=== PATIENT | female | born 1975 | race Two or more races ===

== ENCOUNTER 2019-02-16 12:46 | Emergency (ER) | payer MEDICAID ==
[~2019-02-16] VITALS: Ht 154.9 cm; Wt 105.0 kg
[~2019-02-16 12:46] MED LIST: AMLO10TA PO; CLIN-96 PO; CYCL10TA10 PO; HYDR-4383 PO; RANI-366 PO
[2019-02-16 13:00] VITALS: BP 232/110
[2019-02-16 13:25] LABS: BASOPHILS % (AUTO) 0.5 % (0-1); EOSINOPHILS # (AUTO) 0.1 X10'3 (0-0.9); EOSINOPHILS % (AUTO) 1.7 % (0-6); HEMATOCRIT 35.8 % (35.0-45.0); HEMOGLOBIN 11.2 g/dl (12.0-16.0); LYMPHOCYTES # (AUTO) 2.5 X10'3 (1.1-4.8); LYMPHOCYTES % (AUTO) 31.3 % (21-51); MEAN CORPUSCULAR HEMOGLOBIN 19.8 PG (27.0-31.0); MEAN CORPUSCULAR HGB CONC 31.3 g/dL (33.0-36.5); MEAN CORPUSCULAR VOLUME 63.3 FL (78-98); MONOCYTES # (AUTO) 0.5 X10'3 (0-0.9); MONOCYTES % (AUTO) 5.9 % (2-12); NEUTROPHILS # (AUTO) 4.8 X10'3 (1.8-7.7); NEUTROPHILS % (AUTO) 60.6 % (42-75); PLATELET COUNT 285 X10'3 (140-440); RED BLOOD COUNT 5.66 X10'6 (4.20-5.60); RED CELL DISTRIBUTION WIDTH 18.6 % (11.5-14.5); WHITE BLOOD COUNT 7.9 X10'3 (4.5-11.0)
[2019-02-16 13:37] LABS: ALANINE AMINOTRANSFERASE 19 U/L (12-78); ALBUMIN 3.3 G/DL (3.4-5.0); ALBUMIN/GLOBULIN RATIO 0.7 (1.1-1.5); ALKALINE PHOSPHATASE 63 IU/L (46-116); ANION GAP 6 (8-16); ASPARTATE AMINO TRANSFERASE 13 U/L (10-37); BILIRUBIN,TOTAL 0.3 MG/DL (0.1-1.0); BLOOD UREA NITROGEN 16 MG/DL (7-18); BUN/CREATININE RATIO 17.8 (6.6-38.0); CHLORIDE 104 MMOL/L (99-107); GLUCOSE 117 MG/DL (70-104); PARTIAL THROMBOPLASTIN TIME 28 SECONDS (22-32); POTASSIUM 3.6 MMOL/L (3.5-5.1); PROTHROMBIN TIME 10.4 SECONDS (9.0-12.0); SODIUM 138 MMOL/L (135-145); TOTAL CARBON DIOXIDE 27.9 MMOL/L (24-32); TOTAL PROTEIN 7.8 G/DL (6.4-8.2); eGFR 69 ML/MIN
[2019-02-16 15:13] LABS: ANISOCYTOSIS 2+; MICROCYTOSIS 2+; PLATELET ESTIMATE NORMAL; SCHISTOCYTES FEW
== END 2019-02-16 15:36 | disposition home or self-care (01) ==
LOC: ER 12:47
DX: B34.9 Viral infection, unspecified (principal); R07.9 Chest pain, unspecified; R10.13 Epigastric pain; I10 Essential (primary) hypertension; G89.29 Other chronic pain; I20.9 Angina pectoris, unspecified; Z98.51 Tubal ligation status; Z56.0 Unemployment, unspecified; Z88.5 Allergy status to narcotic agent; Z88.0 Allergy status to penicillin; Z79.899 Other long term (current) drug therapy
CPT/HCPCS: 36415; 71046; 80053; 84484; 85025; 85610; 85730; 99284

== ENCOUNTER 2021-04-22 13:39 | Inpatient (IN) | payer MEDICAID ==
[~2021-04-22] VITALS: Ht 154.9 cm; Wt 93.1 kg
[~2021-04-22 13:39] MED LIST changes: -CLIN-96 PO; +CLIN-97 PO
--- NOTE | 2021-04-22 15:04 | NUR ---
PATIENT REPORTS NUMBNESS TO LEFT FACE, LEFT ARM, LEFT SIDE AND LEG, INTERMITTENTLY FOR THE PAST 1-2 WEEKS. HX HTN.
[2021-04-22 15:26] LABS: BASOPHILS % (AUTO) 0.4 % (0-1); EOSINOPHILS # (AUTO) 0.2 X10'3 (0-0.9); EOSINOPHILS % (AUTO) 1.9 % (0-6); HEMATOCRIT 33.9 % (35.0-45.0); HEMOGLOBIN 10.6 g/dl (12.0-16.0); LYMPHOCYTES % (AUTO) 29.9 % (21-51); MEAN CORPUSCULAR HEMOGLOBIN 19.9 PG (27.0-31.0); MEAN CORPUSCULAR HGB CONC 31.4 g/dL (33.0-36.5); MEAN CORPUSCULAR VOLUME 63.5 FL (78-98); MEAN PLATELET VOLUME 8.6 FL (7.4-10.4); MONOCYTES # (AUTO) 0.7 X10'3 (0-0.9); MONOCYTES % (AUTO) 6.9 % (2-12); NEUTROPHILS # (AUTO) 6.1 X10'3 (1.8-7.7); NEUTROPHILS % (AUTO) 60.9 % (42-75); PLATELET COUNT 334 X10'3 (140-440); RED BLOOD COUNT 5.34 X10'6 (4.20-5.60); RED CELL DISTRIBUTION WIDTH 18.2 % (11.5-14.5)
[2021-04-22 15:40] LABS: ALANINE AMINOTRANSFERASE 20 U/L (12-78); ALBUMIN 3.3 G/DL (3.4-5.0); ALBUMIN/GLOBULIN RATIO 0.7 (1.1-1.5); ALKALINE PHOSPHATASE 60 IU/L (46-116); ANION GAP 10 (8-16); ASPARTATE AMINO TRANSFERASE 12 U/L (10-37); BILIRUBIN,TOTAL 0.4 MG/DL (0.1-1.0); BLOOD UREA NITROGEN 10 MG/DL (7-18); BUN/CREATININE RATIO 11.9 (6.6-38.0); CALCIUM 8.8 MG/DL (8.5-10.1); CHLORIDE 106 MMOL/L (99-107); CREATININE 0.84 MG/DL (0.40-0.90); GLUCOSE 80 MG/DL (70-104); POTASSIUM 3.4 MMOL/L (3.5-5.1); SODIUM 141 MMOL/L (135-145); TOTAL CARBON DIOXIDE 25.3 MMOL/L (24-32); TOTAL PROTEIN 8.2 G/DL (6.4-8.2); eGFR 74 ML/MIN
[2021-04-22 15:49] LABS: ANISOCYTOSIS 2+; ELLIPTOCYTES FEW; LARGE PLATELETS FEW; MICROCYTOSIS 2+; PLATELET ESTIMATE NORMAL
[2021-04-22 15:50] LABS: POLYCHROMASIA FEW
[2021-04-22 15:51] LABS: SCHISTOCYTES FEW
[2021-04-22 16:53] LABS: CLARITY,URINE SLIGHTLY CLOUDY (Clear); COLOR,URINE STRAW (Yellow); GLUCOSE, URINE NEGATIVE (Neg); KETONES,URINE NEGATIVE (Neg); LEUKOCYTE ESTERASE ,URINE NEGATIVE (Neg); NITRITES, URINE NEGATIVE (Neg); OCCULT BLOOD,URINE NEGATIVE (Neg); PROTEIN,URINE NEGATIVE (Neg)
[2021-04-22 16:58] LABS: UA COLLECTION TYPE CLN CATCH MIDSTREAM
[2021-04-22 17:05] LABS: URINE AMPHETAMINE SCREEN NEGATIVE (Neg); URINE BARBITUATE SCREEN NEGATIVE (Neg); URINE BENZODIAZEPINES SCREEN NEGATIVE (Neg); URINE CANNABINOID SCREEN NEGATIVE (Neg); URINE COCAINE SCREEN NEGATIVE (Neg); URINE METHADONE SCREEN NEGATIVE (Neg); URINE OPIATE SCREEN NEGATIVE (Neg); URINE PHENCYCLIDINE SCREEN NEGATIVE (Neg)
[2021-04-22] MEDS ORDERED: NIFE90TA61 PO (17:05)
[2021-04-22] MEDS ORDERED: SERT-433 PO (17:05)
[2021-04-22] MEDS ORDERED: LOSA100T57 PO (17:05)
[2021-04-22 17:07] LABS: MUCUS STRANDS MANY /LPF (Neg); SQUAMOUS EPITHELIAL CELL,UR MANY /LPF (FEW)
[2021-04-22 17:08] LABS: RBC,URINE NONE SEEN /HPF (0-2); WBC,URINE 0-4 /HPF (0-4)
[2021-04-22 17:09] LABS: BACTERIA,URINE 2+ /HPF (Neg)
[2021-04-22] MEDS ORDERED: metoprolol tartrate 1mg/ml inj IV ONE (17:25)
[2021-04-22] MEDS ORDERED: mag hydrox/Alum hydrox/simeth 30ml oral suspension PO PRN (17:35)
[2021-04-22] MEDS ORDERED: morphine 2 MG/ML inj. syringe IV PRN ×2 (17:35)
[2021-04-22] MEDS ORDERED: HYDROcodone/acetaminophen 5mg/325mg tablet PO PRN (17:35)
[2021-04-22] MEDS ORDERED: ondansetron/PF 4mg/2ml inj IV PRN (17:35)
[2021-04-22] MEDS ORDERED: magnesium hydroxide 30ml (MOM) UD suspension PO PRN (17:35)
[2021-04-22] MEDS ORDERED: acetaminophen 325mg tablet PO PRN ×2 (17:35)
[2021-04-22] MEDS ORDERED: HYDROcodone/acetaminophen 10/325mg tab PO PRN (17:35)
[2021-04-22] MEDS ORDERED: aspirin 81mg tab.chew PO ONE (17:40)
[2021-04-22] MEDS ORDERED: labetalol 20mg/4ml (5mg/ml) syringe IV PRN (17:55)
[2021-04-22 18:18] LABS: CHOL/HDL RATIO 6.3 (0.00-4.99); CHOLESTEROL 232 MG/DL (0-200); HDL CHOLESTEROL 37 MG/DL (35-60); LDL CHOLESTEROL 173 MG/DL (50-100); TRIGLYCERIDES 89 MG/DL (20-135)
[2021-04-22 18:43] LABS: FERRITIN 15 NG/ML (8-252)
--- NOTE | 2021-04-22 18:51 | NUR ---
Patient back from [facility] was not able to tolerate the test as it was overwhelming.
[2021-04-22 19:32] LABS: % IRON SATURATION 7 % (11-46); IRON 22 UG/DL (49-151); TOTAL IRON BINDING CAPACITY 319 UG/DL (259-388)
[2021-04-22] MEDS ORDERED: hydrALAZINE 20mg/ml inj. IV PRN (20:40)
[2021-04-22 21:30] VITALS: BP 118/77
[2021-04-22 22:30] VITALS: BP 114/57
[2021-04-22] MEDS ORDERED: normal saline 1000ml 1,000 ML IV ONE (23:10)
--- NOTE | 2021-04-22 23:30 | NUR ---
Called by Nicole special agent in charge regarding increase in pt symptoms. Pt reportedly attempted to get out of bed and fell at approx 2230 this evening. Pt was unable to move left arm or leg but remained alert, and oriented. Pt reported feeling "sweaty" prior to trying to get up. Pt's BP was 114-117 systolic at this time. Pt treated with hydralazine and metoprolol in the ED for hypertension. [address] upon my arrival pt was in CT. [address] Alert with left lower facial weakness and inability to move left arm or leg. Submitted request for tele neuro exam. 1 liter of NS infusing rapidly. 0010 tele neuro exam completed with Dr Sultana at which time pt was able to raise left arm off bed but not hold it up. Able to left left leg and hold for 5 seconds. BP 177-183 systolic. Orders for CTA head and neck. Pt unable to tolerate MRI prior to floor admission.
[2021-04-23] VITALS (7 sets, daily range): BP systolic 136–202; BP diastolic 57–99
[2021-04-23] MEDS ORDERED: iohexol 350MG/ML 100ml bottle IV ONE (01:06)
--- NOTE | 2021-04-23 01:22 | NUR ---
0 PATIENT ARRIVED TO FLOOR. ONLY COMPLAINT WAS NUMBNESS TO LEFT ARM AND LEFT SIDE FACIAL DROOP. (PLEASE SEE [facility]) OTHERWISE PATIENT WAS AT BASELINE. AMBULATED INDEPENDENT TO BATHROOM AND ATE A SANDWITCH WITHOUT DIFFICULTY. BP 118/77. 2230 NOTED PATIENT HAD FALLEN TO THE FLOOR. REPORTED SHE DID NOT HIT HER HEAD. STATED SHE WAS FEELING "SWEATY" AND WAS TRYING TO CALL FOR HELP AND DECIDED TO GET UP WHEN HER LEG GAVE OUT AND SHE FELL TO THE FLOOR. ASSISTED PATIENT TO CHAIR WHERE WE NOTED HER LEFT ARM AND LEFT LEG WERE BOTH FLACID. REPORTS TOTAL SENSATION LOSS ON LEFT SIDE. PATIENT INCONTINENT OF STOOL. BP 114/57. 5 ASSISTED BACK TO BED AND CALLED A STROKE ALERT AND CALLED DR. KRUEGER WHO ORDERED A 1L FLUID BOLUS AND A CT OF HEAD AND NECK WITHOUT CONTRAST. PT TAKEN TO CT. JUHI, STROKE NURSE, WAS AWAITING ON THE UNIT WHEN WE GOT BACK. AFTER APPROX 500ML'S OF FLUID INFUSED BP 183/64 AT 0000. TELE NEURO WAS DONE AND ORDERED A CTA OF HEAD. PT DOWN GETTING IMAGING DONE NOW. LAST BP 200/83. PT NOW ABLE TO LIFT LEG AND MOVE ARM AT THE SHOULDER. STATES NO SENSATION LOSS.
[2021-04-23 01:51] LABS: ALANINE AMINOTRANSFERASE 21 U/L (12-78); ALBUMIN 3.2 G/DL (3.4-5.0); ALBUMIN/GLOBULIN RATIO 0.7 (1.1-1.5); ALKALINE PHOSPHATASE 59 IU/L (46-116); ANION GAP 13 (8-16); ASPARTATE AMINO TRANSFERASE 12 U/L (10-37); BILIRUBIN,TOTAL 0.5 MG/DL (0.1-1.0); BLOOD UREA NITROGEN 11 MG/DL (7-18); BUN/CREATININE RATIO 11.1 (6.6-38.0); CALCIUM 8.4 MG/DL (8.5-10.1); CHLORIDE 106 MMOL/L (99-107); CHOL/HDL RATIO 6.6 (0.00-4.99); CHOLESTEROL 224 MG/DL (0-200); CREATININE 0.99 MG/DL (0.40-0.90); GLUCOSE 158 MG/DL (70-104); HDL CHOLESTEROL 34 MG/DL (35-60); LDL CHOLESTEROL 171 MG/DL (50-100); POTASSIUM 3.2 MMOL/L (3.5-5.1); SODIUM 141 MMOL/L (135-145); TOTAL CARBON DIOXIDE 21.8 MMOL/L (24-32); TOTAL PROTEIN 7.9 G/DL (6.4-8.2); TRIGLYCERIDES 79 MG/DL (20-135); eGFR 61 ML/MIN
[2021-04-23 02:00] LABS: BASOPHILS % (AUTO) 0.2 % (0-1); EOSINOPHILS # (AUTO) 0.2 X10'3 (0-0.9); EOSINOPHILS % (AUTO) 1.5 % (0-6); HEMOGLOBIN 10.3 g/dl (12.0-16.0); LYMPHOCYTES # (AUTO) 4.1 X10'3 (1.1-4.8); LYMPHOCYTES % (AUTO) 36.7 % (21-51); MEAN CORPUSCULAR HEMOGLOBIN 20.1 PG (27.0-31.0); MEAN CORPUSCULAR HGB CONC 31.4 g/dL (33.0-36.5); MEAN PLATELET VOLUME 10.2 FL (7.4-10.4); MONOCYTES # (AUTO) 0.7 X10'3 (0-0.9); MONOCYTES % (AUTO) 6.1 % (2-12); NEUTROPHILS # (AUTO) 6.3 X10'3 (1.8-7.7); NEUTROPHILS % (AUTO) 55.5 % (42-75); PLATELET COUNT 363 X10'3 (140-440); RED BLOOD COUNT 5.15 X10'6 (4.20-5.60); RED CELL DISTRIBUTION WIDTH 18.4 % (11.5-14.5); WHITE BLOOD COUNT 11.3 X10'3 (4.5-11.0)
[2021-04-23 04:41] LABS: ANISOCYTOSIS 2+; ELLIPTOCYTES FEW; MICROCYTOSIS 2+; PLATELET ESTIMATE NORMAL; SCHISTOCYTES FEW
--- NOTE | 2021-04-23 06:13 | NUR ---
Patient in room ORTHO 4021. I have received report from Tabby SKINNER and had the opportunity to ask questions and assume patient care.
--- NOTE | 2021-04-23 07:05 | NUR ---
PAGER ID: [phone] MESSAGE: [id number] Saba Aguilar is 3.2 can I get replacement protocol for her please? thanks alisha [phone]
[2021-04-23] MEDS: sertraline 50mg tablet PO SCH (07:35)
[2021-04-23] MEDS: aspirin 325mg tablet, delayed-release (Ecotrin) PO SCH (07:35)
[2021-04-23] MEDS: losartan 50mg tablet PO SCH (08:00)
[2021-04-23] MEDS ORDERED: NIFEdipine XL 30mg tablet PO SCH (08:00)
[2021-04-23] MEDS ORDERED: amLODIPine 5mg tablet PO SCH (08:00)
--- NOTE | 2021-04-23 08:18 | NUR ---
In to give AM medications, BP 187/66. Blood pressure medications held at this time to allow for permissive hypertension per [facility] neurology reccomendations.
--- NOTE | 2021-04-23 08:27 | NUR ---
technical project coordinator at bedside.
[2021-04-23 08:49] LABS: BASOPHILS % (AUTO) 0.3 % (0-1); EOSINOPHILS % (AUTO) 0.3 % (0-6); HEMATOCRIT 33.6 % (35.0-45.0); HEMOGLOBIN 10.6 g/dl (12.0-16.0); LYMPHOCYTES # (AUTO) 2.2 X10'3 (1.1-4.8); LYMPHOCYTES % (AUTO) 19.7 % (21-51); MEAN CORPUSCULAR HGB CONC 31.5 g/dL (33.0-36.5); MEAN CORPUSCULAR VOLUME 63.4 FL (78-98); MEAN PLATELET VOLUME 8.5 FL (7.4-10.4); MONOCYTES # (AUTO) 0.4 X10'3 (0-0.9); MONOCYTES % (AUTO) 3.8 % (2-12); NEUTROPHILS # (AUTO) 8.4 X10'3 (1.8-7.7); NEUTROPHILS % (AUTO) 75.9 % (42-75); PLATELET COUNT 359 X10'3 (140-440); RED CELL DISTRIBUTION WIDTH 18.4 % (11.5-14.5); WHITE BLOOD COUNT 11.1 X10'3 (4.5-11.0)
[2021-04-23 09:03] LABS: ALANINE AMINOTRANSFERASE 17 U/L (12-78); ALBUMIN 3.3 G/DL (3.4-5.0); ALBUMIN/GLOBULIN RATIO 0.7 (1.1-1.5); ALKALINE PHOSPHATASE 62 IU/L (46-116); ANION GAP 11 (8-16); ASPARTATE AMINO TRANSFERASE 10 U/L (10-37); BILIRUBIN,TOTAL 0.5 MG/DL (0.1-1.0); BLOOD UREA NITROGEN 12 MG/DL (7-18); BUN/CREATININE RATIO 12.8 (6.6-38.0); CHLORIDE 105 MMOL/L (99-107); CREATININE 0.94 MG/DL (0.40-0.90); GLUCOSE 161 MG/DL (70-104); POTASSIUM 3.4 MMOL/L (3.5-5.1); SODIUM 142 MMOL/L (135-145); TOTAL CARBON DIOXIDE 26.5 MMOL/L (24-32); TOTAL PROTEIN 8.2 G/DL (6.4-8.2); eGFR 65 ML/MIN
[2021-04-23 09:40] LABS: ANISOCYTOSIS 2+; ELLIPTOCYTES FEW; LARGE PLATELETS FEW; MICROCYTOSIS 2+; PLATELET ESTIMATE NORMAL; TEAR DROP CELLS FEW
[2021-04-23 09:41] LABS: HYPOCHROMASIA 2+
[2021-04-23] MEDS ORDERED: potassium Cl 20 mEq SR tablet PO PRN (10:20)
[2021-04-23] MEDS ORDERED: potassium Cl 40MEQ/1/2NS 520ml 520 ML IV PRN (10:20)
[2021-04-23] MEDS ORDERED: magnesium Cl slow-release 64mg tablet PO PRN (10:20)
[2021-04-23] MEDS ORDERED: magnesium 4gm in 100ml NS 100 ML IV PRN (10:20)
[2021-04-23] MEDS ORDERED: LORazepam 2 mg/ml vial IM ONE (10:20)
[2021-04-23] MEDS: atorvastatin 20mg tablet PO SCH (10:37)
[2021-04-23] MEDS: potassium Cl 20 mEq SR tablet PO PRN ×3 (10:37→17:42)
--- NOTE | 2021-04-23 12:00 | NUR ---
Patient to MRI
[2021-04-23] MEDS ORDERED: LORazepam 2 mg/ml vial IV STA (12:12)
--- NOTE | 2021-04-23 12:23 | NUR ---
Patient was not able to tolerate MRI. Ordered a follow up for tele neurology to review head and neck cta.
--- NOTE | 2021-04-23 12:41 | NUR ---
PAGER ID: [phone] MESSAGE: [phone] please call neurologist Dr. Davis [phone] [email or web address]
--- NOTE | 2021-04-23 17:58 | NUR ---
PAGER ID: [phone] MESSAGE: [id number] Jeff, Patient was unable to tolerate MRI even with Ativan. alisha [phone]
--- NOTE | 2021-04-23 18:14 | NUR ---
Problems reprioritized. Patient report given, questions answered & plan of care reviewed with Tabby SKINNER.
[2021-04-23] MEDS: K and/or MAG REPLACEMENT MC SCH (20:00)
[2021-04-24 02:00] VITALS: BP 188/78
--- NOTE | 2021-04-24 06:04 | NUR ---
Patient in room ORTHO 4021. I have received report from Tabby SKINNER and had the opportunity to ask questions and assume patient care.
[2021-04-24 06:05] VITALS: BP 204/76
[2021-04-24 06:15] LABS: BASOPHILS % (AUTO) 0.2 % (0-1); EOSINOPHILS # (AUTO) 0.2 X10'3 (0-0.9); EOSINOPHILS % (AUTO) 2.2 % (0-6); HEMATOCRIT 32.7 % (35.0-45.0); HEMOGLOBIN 10.2 g/dl (12.0-16.0); LYMPHOCYTES # (AUTO) 3.1 X10'3 (1.1-4.8); LYMPHOCYTES % (AUTO) 36.5 % (21-51); MEAN CORPUSCULAR HGB CONC 31.2 g/dL (33.0-36.5); MEAN CORPUSCULAR VOLUME 64.1 FL (78-98); MEAN PLATELET VOLUME 8.8 FL (7.4-10.4); MONOCYTES # (AUTO) 0.5 X10'3 (0-0.9); MONOCYTES % (AUTO) 6.3 % (2-12); NEUTROPHILS # (AUTO) 4.7 X10'3 (1.8-7.7); NEUTROPHILS % (AUTO) 54.8 % (42-75); PLATELET COUNT 333 X10'3 (140-440); RED BLOOD COUNT 5.11 X10'6 (4.20-5.60); RED CELL DISTRIBUTION WIDTH 18.5 % (11.5-14.5); WHITE BLOOD COUNT 8.5 X10'3 (4.5-11.0)
[2021-04-24 06:16] LABS: ANION GAP 10 (8-16); BLOOD UREA NITROGEN 19 MG/DL (7-18); BUN/CREATININE RATIO 22.6 (6.6-38.0); CHLORIDE 107 MMOL/L (99-107); CREATININE 0.84 MG/DL (0.40-0.90); GLUCOSE 96 MG/DL (70-104); POTASSIUM 4.1 MMOL/L (3.5-5.1); SODIUM 142 MMOL/L (135-145); TOTAL CARBON DIOXIDE 25.2 MMOL/L (24-32)
[2021-04-24 06:17] LABS: ALANINE AMINOTRANSFERASE 18 U/L (12-78); ALBUMIN/GLOBULIN RATIO 0.6 (1.1-1.5); ALKALINE PHOSPHATASE 52 IU/L (46-116); ASPARTATE AMINO TRANSFERASE 13 U/L (10-37); BILIRUBIN,TOTAL 0.3 MG/DL (0.1-1.0); CALCIUM 8.5 MG/DL (8.5-10.1); MAGNESIUM 1.9 MG/DL (1.5-2.4); TOTAL PROTEIN 7.7 G/DL (6.4-8.2); eGFR 74 ML/MIN
[2021-04-24 07:17] LABS: PLATELET ESTIMATE NORMAL
[2021-04-24 07:18] LABS: ANISOCYTOSIS 2+; MICROCYTOSIS 2+
[2021-04-24 07:19] LABS: ELLIPTOCYTES FEW; HYPOCHROMASIA 1+; SCHISTOCYTES FEW; TEAR DROP CELLS FEW
[2021-04-24] MEDS: sertraline 50mg tablet PO SCH (07:43)
[2021-04-24] MEDS: aspirin 325mg tablet, delayed-release (Ecotrin) PO SCH (07:43)
[2021-04-24] MEDS: atorvastatin 20mg tablet PO SCH (07:44)
[2021-04-24] MEDS: K and/or MAG REPLACEMENT MC SCH (08:00)
[2021-04-24] MEDS: losartan 50mg tablet PO SCH (08:54)
[2021-04-24] MEDS ORDERED: CLOP75TA15 PO (09:47)
[2021-04-24] MEDS ORDERED: ATOR20TA66 PO (09:47)
[2021-04-24] MEDS ORDERED: ASPI-1071 PO (09:47)
[2021-04-24 10:21] VITALS: BP 209/90
--- NOTE | 2021-04-24 10:24 | NUR ---
PAGER ID: [phone] MESSAGE: [id number], Jeff systolic bp still 209 after losartan, do you want me to order her home dose of amlodipine or nifedipime? alisha [email or web address] Addendum: 04/24/21 at 1044 by Alisha Zarate RN Received orders to administer both amlodipine and nifedipime to attempt to get systolic blood pressure below 200.
[2021-04-24] MEDS ORDERED: amLODIPine 5mg tablet PO SCH ×2 (10:45)
[2021-04-24] MEDS ORDERED: NIFEdipine XL 30mg tablet PO ONE (10:45)
[2021-04-24] MEDS ORDERED: FERR-119 PO (10:52)
[2021-04-24] MEDS ORDERED: NIFEdipine XL 30mg tablet PO SCH (10:55)
[2021-04-24 11:45] VITALS: BP 190/80
--- NOTE | 2021-04-24 12:37 | NUR ---
Patient discharged to home, stroke education given both to patient and mother. Removed 22 gauge PIV from right hand with no complications, 20 gauge to left forearm removed as well with no complications. Patient is instructed to follow up with Dr. Daniel, number provided and to take all medications as prescribed including plavix and aspirin. Verbalized understanding.
== END 2021-04-24 12:45 | disposition home health service (06) | DRG 45 ==
LOC: ER 13:41 → ED HOLD 17:34 → ORTHO 4S 21:30
PROVIDERS: ADMIT Internal Medicine; ATTEND Internal Medicine
PROC: BW281ZZ Computerized Tomography (CT Scan) of Head using Low Osmolar Contrast (ICD-10-PCS; principal; 2021-04-23)
DX: I63.511 Cerebral infarction due to unspecified occlusion or stenosis of right middle cerebral artery (principal); I67.7 Cerebral arteritis, not elsewhere classified; G81.94 Hemiplegia, unspecified affecting left nondominant side; D50.9 Iron deficiency anemia, unspecified; E11.9 Type 2 diabetes mellitus without complications; I10 Essential (primary) hypertension; Z79.02 Long term (current) use of antithrombotics/antiplatelets; Z79.899 Other long term (current) drug therapy; Z87.730 Personal history of (corrected) cleft lip and palate; Z98.891 History of uterine scar from previous surgery
CPT/HCPCS: 36415; 70450; 70496; 70498; 71045; 72125; 80053; 80061; 80305; 81001; 82728; 82948; 83540; 83550; 83735; 83880; 84443; 85008; 85025; 85610; 85651; 86885; 86900; 86901; 87081; 92508; 92616; 93005; 93306; 97110; 97112; 97161; 97530; 99291; 99292; G0378; J0360; J2060; J3490; J7030; Q9967

== ENCOUNTER 2023-09-14 11:40 | Inpatient (IN) | payer MEDICAID ==
[~2023-09-14] VITALS: Ht 157.5 cm; Wt 89.2 kg
[~2023-09-14 11:40] MED LIST changes: +ASPI-1071 PO; +ATOR20TA66 PO; -CLIN-97 PO; +CLOP75TA15 PO; -CYCL10TA10 PO; +FERR-119 PO; -HYDR-4383 PO; +LOSA100T58 PO; +NIFE90TA61 PO; -RANI-366 PO; +SERT-433 PO
[2023-09-14] MEDS ORDERED: niCARDipine-NS 40mg/200ml IVPB 200 ML IV SCH (11:55)
[2023-09-14] MEDS ORDERED: iohexol 350MG/ML 100ml bottle IV ONE (11:58)
[2023-09-14 12:16] LABS: BASOPHILS % (AUTO) 0.5 % (0-1); EOSINOPHILS # (AUTO) 0.1 X10'3 (0-0.9); EOSINOPHILS % (AUTO) 1.5 % (0-6); HEMATOCRIT 36.1 % (35.0-45.0); HEMOGLOBIN 11.3 g/dl (12.0-16.0); LYMPHOCYTES % (AUTO) 30.9 % (21-51); MEAN CORPUSCULAR HEMOGLOBIN 20.1 PG (27.0-31.0); MEAN CORPUSCULAR HGB CONC 31.4 g/dL (33.0-36.5); MEAN CORPUSCULAR VOLUME 64.2 FL (78-98); MONOCYTES # (AUTO) 0.6 X10'3 (0-0.9); MONOCYTES % (AUTO) 5.8 % (2-12); NEUTROPHILS # (AUTO) 5.9 X10'3 (1.8-7.7); NEUTROPHILS % (AUTO) 61.3 % (42-75); PLATELET COUNT 264 X10'3 (140-440); RED BLOOD COUNT 5.62 X10'6 (4.20-5.60); WHITE BLOOD COUNT 9.6 X10'3 (4.5-11.0)
[2023-09-14] MEDS ORDERED: labetalol 20mg/4ml (5mg/ml) syringe IV ONE ×2 (12:20→13:00)
--- NOTE | 2023-09-14 12:24 | NUR ---
Benigno joseph in EDM - 09/14/23 at 1225 by [email or web address] Gave pt labatolol per MD Olfs orders at bedside. HR 52
[2023-09-14 12:32] LABS: ALANINE AMINOTRANSFERASE 13 U/L (12-78); ALBUMIN 3.2 G/DL (3.4-5.0); ALBUMIN/GLOBULIN RATIO 0.7 (1.1-1.5); ALKALINE PHOSPHATASE 53 IU/L (46-116); ANION GAP 6 (8-16); APTT 26 SECONDS (22-32); ASPARTATE AMINO TRANSFERASE 18 U/L (10-37); BILIRUBIN,TOTAL 0.4 MG/DL (0.1-1.0); BLOOD UREA NITROGEN 12 MG/DL (7-18); CALCIUM 8.8 MG/DL (8.5-10.1); CHLORIDE 104 MMOL/L (99-107); CREATININE 0.86 MG/DL (0.40-0.90); GLUCOSE 94 MG/DL (70-104); POTASSIUM 3.8 MMOL/L (3.5-5.1); PROTHROMBIN TIME 10.8 SECONDS (9.0-12.0); SODIUM 136 MMOL/L (135-145); TOTAL CARBON DIOXIDE 25.6 MMOL/L (24-32); eCRCL 65 ML/MIN; eGFR 71 ML/MIN
--- NOTE | 2023-09-14 12:37 | NUR ---
Pt already assessed by neuro at bedside, plan to keep bp below 220 systolic. Pt will be level 2 stroke alert, LSN last night 2200. Woke up w/numbess to L side.
[2023-09-14 12:40] LABS: PRO BRAIN NATRIURETIC PEPTIDE 414 PG/ML (0-125)
[2023-09-14 12:44] LABS: ANISOCYTOSIS 2+; HYPOCHROMASIA 1+; MICROCYTOSIS 2+; PLATELET ESTIMATE NORMAL
[2023-09-14 12:45] LABS: ELLIPTOCYTES FEW
[2023-09-14] MEDS ORDERED: hydrALAZINE 25 MG tablet PO STA (13:00)
[2023-09-14] MEDS ORDERED: LORazepam 2 mg/ml vial IV ONE (13:55)
[2023-09-14] MEDS ORDERED: clopidogrel 75mg tablet PO STA (13:58)
[2023-09-14] MEDS ORDERED: aspirin 81mg tab.chew PO ONE (14:00)
[2023-09-14] MEDS ORDERED: labetalol 20mg/4ml (5mg/ml) syringe IV PRN (14:10)
[2023-09-14] MEDS ORDERED: magnesium hydroxide 30ml (MOM) UD suspension PO PRN (14:10)
[2023-09-14] MEDS ORDERED: mag hydrox/Alum hydrox/simeth 30ml oral suspension PO PRN (14:10)
[2023-09-14] MEDS ORDERED: morphine 2 MG/ML inj. syringe IV PRN ×2 (14:10)
[2023-09-14] MEDS ORDERED: ondansetron/PF 4mg/2ml inj IV PRN (14:10)
[2023-09-14] MEDS ORDERED: HYDROcodone/acetaminophen 5mg/325mg tablet PO PRN (14:10)
[2023-09-14] MEDS ORDERED: acetaminophen 325mg tablet PO PRN ×2 (14:10)
--- NOTE | 2023-09-14 16:30 | NUR ---
MD Kumar notified re pt's continued bp, he orders no corrections under 220 systolic.
[2023-09-14 16:35] LABS: HEMOGLOBIN A1C 5.7 % (4.5-6.2)
[2023-09-14] MEDS: docusate sod 100mg capsule PO SCH (19:53)
--- NOTE | 2023-09-14 20:46 | NUR ---
TRIED TO CALL REPORT PER STAFF NURSE FEBRUARY IS NOT AVAILABLE AT THIS TIME.
[2023-09-14 21:15] VITALS: BP 220/80; PULSE 53; RESP 16; TEMP 97.4; O2SAT 97
[2023-09-15 01:00] VITALS: BP 144/66; PULSE 67; RESP 19; TEMP 97.8; O2SAT 97
[2023-09-15 05:00] VITALS: BP 172/71; PULSE 65; RESP 12; TEMP 97.9; O2SAT 100
[2023-09-15 06:00] VITALS: BP 172/71; PULSE 65; RESP 12; TEMP 97.9; O2SAT 100
--- NOTE | 2023-09-15 06:26 | NUR ---
Patient in room ORTHO 4010. I have received report from BRODY Allred and had the opportunity to ask questions and assume patient care.
[2023-09-15 07:00] VITALS: RESP 14; O2SAT 97
[2023-09-15 07:29] LABS: BASOPHILS % (AUTO) 0.3 % (0-1); EOSINOPHILS # (AUTO) 0.1 X10'3 (0-0.9); EOSINOPHILS % (AUTO) 1.7 % (0-6); HEMATOCRIT 34.1 % (35.0-45.0); HEMOGLOBIN 10.8 g/dl (12.0-16.0); LYMPHOCYTES # (AUTO) 1.8 X10'3 (1.1-4.8); LYMPHOCYTES % (AUTO) 21.6 % (21-51); MEAN CORPUSCULAR HEMOGLOBIN 20.4 PG (27.0-31.0); MEAN CORPUSCULAR HGB CONC 31.8 g/dL (33.0-36.5); MEAN CORPUSCULAR VOLUME 64.3 FL (78-98); MONOCYTES # (AUTO) 0.6 X10'3 (0-0.9); NEUTROPHILS # (AUTO) 5.9 X10'3 (1.8-7.7); NEUTROPHILS % (AUTO) 69.4 % (42-75); PLATELET COUNT 251 X10'3 (140-440); RED CELL DISTRIBUTION WIDTH 19.3 % (11.5-14.5); WHITE BLOOD COUNT 8.5 X10'3 (4.5-11.0)
[2023-09-15 07:48] LABS: ALBUMIN 2.8 G/DL (3.4-5.0); ANION GAP 8 (8-16); BLOOD UREA NITROGEN 11 MG/DL (7-18); BUN/CREATININE RATIO 13.6 (10.0-20.0); CALCIUM 8.7 MG/DL (8.5-10.1); CHLORIDE 104 MMOL/L (99-107); CHOL/HDL RATIO 4.6 (0.00-4.99); CHOLESTEROL 189 MG/DL (0-200); CREATININE 0.81 MG/DL (0.40-0.90); GLUCOSE 92 MG/DL (70-104); HDL CHOLESTEROL 41 MG/DL (35-60); LDL CHOLESTEROL 129 MG/DL (50-100); POTASSIUM 3.5 MMOL/L (3.5-5.1); SODIUM 137 MMOL/L (135-145); TOTAL CARBON DIOXIDE 25.2 MMOL/L (24-32); TRIGLYCERIDES 71 MG/DL (20-135); eCRCL 69 ML/MIN; eGFR 76 ML/MIN
[2023-09-15] MEDS: docusate sod 100mg capsule PO SCH ×2 (07:53→20:00)
[2023-09-15] MEDS: enoxaparin 40mg/0.4ml syringe SUBCUT SCH (07:54)
[2023-09-15] MEDS: aspirin 81mg, enteric-coated 1 TAB TABLET.DR PO SCH (07:54)
[2023-09-15] MEDS: clopidogrel 75mg tablet PO SCH (07:55)
[2023-09-15] MEDS: atorvastatin 20mg tablet PO SCH (07:55)
[2023-09-15] MEDS: HYDROcodone/acetaminophen 10/325mg tab PO PRN ×2 (08:46→14:54)
--- NOTE | 2023-09-15 12:07 | NUR ---
: adriel- [id number] Pt rm 4010B- pt has BP 207/76, would you like me to order a BP medication ? She does not have any ordered. Thank you.
--- NOTE | 2023-09-15 12:08 | NUR ---
as clinical instructor i reviewed student nurse physical assessment
[2023-09-15] MEDS: hydrALAZINE 20mg/ml inj. IV PRN ×2 (14:53→22:17)
--- NOTE | 2023-09-15 15:43 | NUR ---
MESSAGE: adriel- [email or web address] Pt room 4010B- Karmen Agiular- pt has been seen by PT and has been cleared for discharge. Do you want patient to be discharged, she is still refusing MRI. Thank you.
[2023-09-15] MEDS ORDERED: ASPI-1071 PO (17:24)
[2023-09-15] MEDS ORDERED: ATOR40TA71 PO (17:24)
[2023-09-15 18:00] VITALS: BP 171/78; PULSE 63; RESP 16; TEMP 98; O2SAT 97
--- NOTE | 2023-09-15 18:00 | NUR ---
Patient in room ORTHO 4010. I have received report from BRODY Farrell and had the opportunity to ask questions and assume patient care.
--- NOTE | 2023-09-15 18:50 | NUR ---
Problems reprioritized. Patient report given, questions answered & plan of care reviewed with BRODY Becerril.
[2023-09-15 22:00] VITALS: BP 192/68; PULSE 62; RESP 23; TEMP 97.9; O2SAT 95
[2023-09-16 01:54] VITALS: BP 127/54; PULSE 98; RESP 15; TEMP 97.9; O2SAT 99
[2023-09-16 06:14] LABS: BASOPHILS % (AUTO) 0.1 % (0-1); EOSINOPHILS # (AUTO) 0.2 X10'3 (0-0.9); EOSINOPHILS % (AUTO) 1.3 % (0-6); HEMATOCRIT 35.2 % (35.0-45.0); HEMOGLOBIN 10.8 g/dl (12.0-16.0); LYMPHOCYTES # (AUTO) 2.5 X10'3 (1.1-4.8); LYMPHOCYTES % (AUTO) 22.4 % (21-51); MEAN CORPUSCULAR HEMOGLOBIN 19.7 PG (27.0-31.0); MEAN CORPUSCULAR HGB CONC 30.6 g/dL (33.0-36.5); MEAN CORPUSCULAR VOLUME 64.2 FL (78-98); MEAN PLATELET VOLUME 9.3 FL (7.4-10.4); MONOCYTES # (AUTO) 0.7 X10'3 (0-0.9); MONOCYTES % (AUTO) 5.9 % (2-12); NEUTROPHILS # (AUTO) 7.9 X10'3 (1.8-7.7); NEUTROPHILS % (AUTO) 70.3 % (42-75); PLATELET COUNT 300 X10'3 (140-440); RED BLOOD COUNT 5.49 X10'6 (4.20-5.60); RED CELL DISTRIBUTION WIDTH 19.4 % (11.5-14.5); WHITE BLOOD COUNT 11.2 X10'3 (4.5-11.0)
--- NOTE | 2023-09-16 06:15 | NUR ---
Problems reprioritized. Patient report given, questions answered & plan of care reviewed with BRODY Farrell.
[2023-09-16 06:26] LABS: ALBUMIN 2.8 G/DL (3.4-5.0); ANION GAP 8 (8-16); BLOOD UREA NITROGEN 16 MG/DL (7-18); BUN/CREATININE RATIO 18.6 (10.0-20.0); CALCIUM 9.2 MG/DL (8.5-10.1); CHLORIDE 103 MMOL/L (99-107); CREATININE 0.86 MG/DL (0.40-0.90); GLUCOSE 96 MG/DL (70-104); POTASSIUM 4.1 MMOL/L (3.5-5.1); SODIUM 136 MMOL/L (135-145); TOTAL CARBON DIOXIDE 24.6 MMOL/L (24-32); eCRCL 65 ML/MIN; eGFR 71 ML/MIN
--- NOTE | 2023-09-16 06:41 | NUR ---
Patient in room ORTHO 4010. I have received report from BRODY Becerril and had the opportunity to ask questions and assume patient care.
[2023-09-16] MEDS: atorvastatin 20mg tablet PO SCH (07:22)
[2023-09-16] MEDS: HYDROcodone/acetaminophen 10/325mg tab PO PRN ×2 (07:22→11:54)
[2023-09-16] MEDS: enoxaparin 40mg/0.4ml syringe SUBCUT SCH (07:23)
[2023-09-16] MEDS: aspirin 81mg, enteric-coated 1 TAB TABLET.DR PO SCH (07:24)
[2023-09-16] MEDS: clopidogrel 75mg tablet PO SCH (07:24)
[2023-09-16] MEDS: docusate sod 100mg capsule PO SCH (07:25)
[2023-09-16] MEDS ORDERED: CLOP75TA34 PO (08:16)
[2023-09-16 11:54] VITALS: RESP 15
--- NOTE | 2023-09-16 17:10 | NUR ---
pt was given discharge packet and was able to ask questions upon discharge. Pt was wheelchaired down to lobby with all of her belongings in no distress and stable. Pt left in private vehicle with friend.
== END 2023-09-16 12:55 | disposition home or self-care (01) | DRG 45 ==
LOC: ER 11:41 → ED HOLD 14:18 → ORTHO 4S 21:15
PROVIDERS: ADMIT Internal Medicine; ATTEND Internal Medicine
PROC: B3251ZZ Computerized Tomography (CT Scan) of Bilateral Common Carotid Arteries using Low Osmolar Contrast (ICD-10-PCS; principal; 2023-09-14)
PROC: B32G1ZZ Computerized Tomography (CT Scan) of Bilateral Vertebral Arteries using Low Osmolar Contrast (ICD-10-PCS; 2023-09-14)
PROC: B32R1ZZ Computerized Tomography (CT Scan) of Intracranial Arteries using Low Osmolar Contrast (ICD-10-PCS; 2023-09-14)
PROC: B3281ZZ Computerized Tomography (CT Scan) of Bilateral Internal Carotid Arteries using Low Osmolar Contrast (ICD-10-PCS; 2023-09-14)
DX: I63.9 Cerebral infarction, unspecified (principal); G81.94 Hemiplegia, unspecified affecting left nondominant side; E78.5 Hyperlipidemia, unspecified; G89.29 Other chronic pain; I10 Essential (primary) hypertension; I08.3 Combined rheumatic disorders of mitral, aortic and tricuspid valves; K21.9 Gastro-esophageal reflux disease without esophagitis; Z53.20 Procedure and treatment not carried out because of patient's decision for unspecified reasons; Z87.730 Personal history of (corrected) cleft lip and palate; Z98.891 History of uterine scar from previous surgery; Z88.0 Allergy status to penicillin; Z88.6 Allergy status to analgesic agent; Z79.899 Other long term (current) drug therapy; Z79.82 Long term (current) use of aspirin; Z82.49 Family history of ischemic heart disease and other diseases of the circulatory system; Z98.51 Tubal ligation status; Z56.0 Unemployment, unspecified
CPT/HCPCS: 36415; 70450; 70496; 70498; 71045; 80048; 80053; 80061; 82948; 83036; 83880; 84484; 85008; 85025; 85610; 85730; 87081; 93306; 97110; 97161; 97530; 99285; G0378; J0360; J1650; J2060; J2405; J3490; Q9967

== ENCOUNTER 2024-03-07 11:07 | Outpatient (CLI) | payer MEDICAID ==
[~2024-03-07 11:07] MED LIST changes: -ATOR20TA66 PO; +ATOR40TA71 PO; -CLOP75TA15 PO; +CLOP75TA34 PO; -FERR-119 PO; -NIFE90TA61 PO
== END 2024-03-07 23:59 | disposition home or self-care (01) ==
LOC: LAB 11:07
PROVIDERS: ATTEND Nurse Practitioner
DX: M25.511 Pain in right shoulder (principal)
CPT/HCPCS: 73030

== ENCOUNTER 2024-04-09 10:53 | Emergency (ER) | payer MEDICAID ==
[~2024-04-09] VITALS: Ht 154.9 cm; Wt 85.3 kg
[2024-04-09 10:56] VITALS: PULSE 59; RESP 16; TEMP 98.6; O2SAT 98
[2024-04-09 11:44] VITALS: BP 256/113
[2024-04-09] MEDS ORDERED: PRED20TA PO (11:57)
[2024-04-09] MEDS: dexamethasone sod phosphate 10mg/ml inj IM STA (11:57)
[2024-04-09] MEDS ORDERED: METH-798 PO (11:57)
== END 2024-04-09 12:31 | disposition home or self-care (01) ==
LOC: ER 10:54
DX: M25.511 Pain in right shoulder (principal); M25.512 Pain in left shoulder; Z88.0 Allergy status to penicillin; Z88.8 Allergy status to other drugs, medicaments and biological substances; I10 Essential (primary) hypertension; D64.9 Anemia, unspecified; G89.29 Other chronic pain; M54.9 Dorsalgia, unspecified; Z98.51 Tubal ligation status; Z56.0 Unemployment, unspecified; Z79.82 Long term (current) use of aspirin; Z79.899 Other long term (current) drug therapy
CPT/HCPCS: 73030; 96372; 99283; J1100; A4565

== ENCOUNTER 2025-04-05 18:30 | Emergency (ER) | payer MEDICAID ==
[~2025-04-05] VITALS: Ht 154.9 cm; Wt 72.8 kg
[~2025-04-05 18:30] MED LIST changes: +METH-798 PO
[2025-04-05 18:53] VITALS: BP 116/66; PULSE 68; O2SAT 100
--- NOTE | 2025-04-05 18:58 | Physician Documentation ---
History of Present Illness ~ Chief Complaint: Shoulder pain Stated Complaint: SHOLDER PAIN Time Seen by MD: 18:55 Primary Medical Doctor: [facility] HPI This is a 49-year-old female who presents with chronic right shoulder pain, patient reports that she has a orthopedist appointment on the 14 of April though pain is worse today is requesting some sort of pain management. Patient reports no other acute symptoms or concerns. Tetanus within 5 years?: Yes Medication Reconciliation Allergies: Coded Allergies: ibuprofen (Unverified Allergy, Mild, hives; rash, 04/05/25) States toradol with no issues Penicillins (Verified Allergy, Unknown, hives; rash, 04/05/25) >5 years ago, hives, no treatment required Scheduled Amlodipine Besylate (Amlodipine Besylate), 10 MG PO DAILY, (Reported) Aspirin (Ecotrin*), 1 TAB PO DAILY, (Reported) Atorvastatin Calcium (Atorvastatin Calcium), 1 TABLET PO DAILY, (Reported) Clopidogrel Bisulfate (Clopidogrel), 75 MG PO DAILY Losartan Potassium (Losartan Potassium), 1 TAB PO DAILY, (Reported) Methocarbamol (Methocarbamol), 1 TAB PO Q8H Sertraline HCl (Sertraline HCl), 1 TAB PO DAILY, (Reported) Past Medical History Past Medical History: Angina, Hypertension, Anemia, Chronic Back Pain Past Surgical History: , tubal ligation, other Other Past Family History: Mom CABG age 50, smoker Alcohol Use: None Drug Use: none Lives with: S/O Lives In: Home Occupation: unemployed Review of Systems ROS Chronic right shoulder pain as stated above in the HPI, otherwise all systems are reviewed and negative. Physical Exam Vital Signs: Temperature: 96.8, Source: Temporal, Heart Rate: 68, Respiratory Rate: 15, BP: 116/66, Pulse Oximetry: 100, Weight: 72.750 Physical Exam VITALS: Reviewed and as above. GENERAL: Alert, nontoxic appearing, no apparent distress. RESPIRATORY: No increased work of breathing, no respiratory distress, speaking in full clear sentences: MUSCULOSKELETAL: Tenderness palpation to posterior aspect of right shoulder, right shoulder ROM limited due to pain with patient unable to raise arm above shoulder, right hand and arm neurovascularly intact with brisk capillary refill, strong radial pulse, and sensation intact SKIN: No ecchymosis or erythema to right shoulder or arm Progress Results/Orders Results/Orders Orders - HARMEET HOLDEN Ortho Orders (04/05/25 ) Completed Orders - HARMEET HOLDEN Ketorolac Trometh 15mg/Ml Vial (Toradol (04/05/25 19:25) Medications Received in ER Medications (Trade) Dose Ordered Sig/Sharon Route PRN Reason Start Time Stop Time Status Last Admin Dose Admin (Toradol injection) 15 mg ONCE ONCE IM 04/05/25 19:25 04/05/25 19:28 DC 04/05/25 19:55 15 MG Vital Signs 04/05/25 04/05/25 04/05/25 18:53 19:50 19:55 Temp 96.8 96.8 Pulse 68 Resp 15 19 B/P (MAP) 116/66 Pulse Ox 100 Medical Decision Making Findings This is a 49-year-old female who presented with chronic right shoulder pain requesting pain medication for chronic shoulder pain, patient does have follow up in six days with orthopedist. It was reassuring the arm was neurovascularly intact and remainder of physical exam was benign. Patient's vital signs are stable, patient medicated for pain in department and discharged to follow up as previously scheduled with orthopedist. Patient provided sling for comfort. Differential Dx:Considerations: Include: AC separation, Adhesive capsulitis, Cervical disc disease, Contusion, Dislocation, Fracture: Humerus, Neurovascular Injury, Rotator cuff injury, Sprain Departure Disposition: 01 HOME / SELF CARE / HOMELESS Impression: Primary Impression: Shoulder pain Qualified Codes: M25.511 - Pain in right shoulder; G89.29 - Other chronic pain Condition: Improved Discharge Instructions: Shoulder Pain Additional Instructions: Follow up with your orthopedist as scheduled, you may use Tylenol as needed for pain as directed by [id number] packaging. Please also follow up with your primary care provider in the next few days. Please return to the emergency department for any new or worsening concerning symptoms. Referrals: NO PRIMARY CARE PROVIDER (PCP) Education Educated: Patient Educated regarding: diagnosis, treatment, prognosis, need for follow up Signature Scribe Signature: No scribe Attestation: The note accurately reflects work and decisions made by me.JONES Morales 04/06/25 02:59 HARMEET HOLDEN April 05, 2025 18:58
[2025-04-05 19:50] VITALS: TEMP 96.8
[2025-04-05 19:55] VITALS: RESP 19
[2025-04-05] MEDS: ketorolac trometh 15mg/ml vial 15 MG/ML ML IM ONE (19:55)
== END 2025-04-05 20:00 | disposition home or self-care (01) ==
LOC: ER 18:30
DX: M25.511 Pain in right shoulder (principal); I10 Essential (primary) hypertension; Z88.0 Allergy status to penicillin; Z88.6 Allergy status to analgesic agent; Z98.51 Tubal ligation status
CPT/HCPCS: 96372; 99283; J1885; A4565

== ENCOUNTER 2025-08-01 10:01 | Inpatient (IN) | payer MEDICAID ==
[~2025-08-01] VITALS: Ht 154.9 cm; Wt 79.0 kg
--- NOTE | 2025-08-01 10:12 | Physician Documentation ---
History of Present Illness ~ Chief Complaint: Stroke Alert Stated Complaint: NUMBNESS SINCE THURSDAY Time Seen by MD: 10:12 Primary Medical Doctor: BENJIE HPI Patient is a 49-year-old female that presents to the emergency department for numbness tingling weakness blurry vision in her left eye since Thursday. She reports she has a history of a stroke 5 years ago and has had multiple episodes alert to today's presentations multiple times since her stroke 5 years ago. She reports that she does have left-sided deficits at baseline upper extremity slight left facial droop numbness tingling at baseline in her upper left extremity left lower extremity is functional with no deficits. Reports headache x2 days. No known nausea vomiting diarrhea at this time. Reports that she has significant hypertension at baseline reports that her hypertension is regularly in the 250s on her systolic blood pressure. Does not worse she takes antihypertensives amlodipine nifedipine and losartan. Patient is currently a and O x4 GCS 15. Medication Reconciliation Allergies: Coded Allergies: ibuprofen (Unverified Allergy, Mild, hives; rash, 04/05/25) States toradol with no issues Penicillins (Verified Allergy, Unknown, hives; rash, 04/05/25) >5 years ago, hives, no treatment required Scheduled Amlodipine Besylate (Amlodipine Besylate), 10 MG PO DAILY, (Reported) Aspirin (Ecotrin*), 1 TAB PO DAILY, (Reported) Atorvastatin Calcium (Atorvastatin Calcium), 1 TABLET PO DAILY, (Reported) Clopidogrel Bisulfate (Plavix), 1 TAB PO DAILY Ferrous Sulfate (Ferrous Sulfate), 1 TAB PO BID, (Reported) Lisinopril (Lisinopril), 1 TAB PO BID Sertraline HCl (Sertraline HCl), 1 TAB PO DAILY, (Reported) Discontinued Medications Clopidogrel Bisulfate (Clopidogrel), 75 MG PO DAILY Discontinued Reason: completed med therapy Losartan Potassium (Losartan Potassium), 1 TAB PO DAILY, (Reported) Methocarbamol (Methocarbamol), 1 TAB PO Q8H Discontinued Reason: patient no longer taking Past Medical History Past Medical History: Angina, Hypertension, Anemia, Chronic Back Pain Past Surgical History: , tubal ligation, other Other Past Family History: Mom CABG age 50, smoker Alcohol Use: None Drug Use: none Lives with: S/O Lives In: Home Occupation: unemployed Review of Systems All Other Systems at this time: Reviewed and Negative Physical Exam Vital Signs: Temperature: 97.9, Source: Temporal, Heart Rate: 87, Respiratory Rate: 18, BP: 287/159, Pulse Oximetry: 100, Weight: 79.000 Oxygen Flow Rate: 0 General Appearance I have reviewed the triage vitals. CONST: Well developed and well nourished. In no acute distress HENT: Head Atraumatic EYES: Pupils are equal, round and reactive to light. Normal conjunctiva NECK: Normal range of motion. Supple. CARDIO: Normal rate and regular rhythm. No murmurs, rubs, or gallops. S1, S2. PULM/CHEST: No respiratory distress. Lungs clear to auscultation. No wheeze ABD: Soft and nontender. Nondistended. Bowel sounds normal. No guarding. : Exam deferred MSK: No edema. No deformity. NEURO: Alert and oriented to person, place and time. Moving all extremities. Left-sided facial arm and leg decreased sensation to light touch. Cranial nerves 2-12 appear normal. Patient reports blurry vision on the left but has normal visual del real. Strength is 3/5 on the left and 5/5 on the right. No pronator drift visualized bilaterally. No leg drift visualized bilaterally. SKIN: Warm and dry. PSYCH: Normal mood and affect. Good eye contact. Progress Results/Orders Results/Orders Orders - JOHN MILLAN MD Monitor (08/01/25 10:09) 2 Large Bore Ivs (08/01/25 10:09) Chest,Single View (08/01/25 10:09) Accucheck (08/01/25 10:09) Ct Stroke Alert (08/01/25 10:16) [place] Prov.Neuro Consult (08/01/25 10:09) Cta Neck/Head (08/01/25 12:51) Page Hospitalist (08/01/25 14:18) Fill Out Med Reconciliation (08/01/25 14:18) Completed Orders - JOHN MILLAN MD Cbc/Diff (08/01/25 10:09) Electrocardiogram (08/01/25 10:09) Chest,Single View (08/01/25 10:09) Ct Stroke Alert (08/01/25 10:16) BMP (08/01/25 10:09) PTT (08/01/25 10:09) Pt Inr (08/01/25 10:09) Hs Troponin I W Calculations (08/01/25 10:31) Hs Troponin I W Calculations (08/01/25 12:31) Cta Neck/Head (08/01/25 12:51) Hydralazine Inj. (Apresoline Inj.) (08/01/25 10:40) Iohexol 350mg/Ml 100ml (Omnipaque 350mg/ (08/01/25 11:15) Normal Saline 1000ml (0.9% Sodium Chlori (08/01/25 11:25) Diazepam Inj (Valium Inj) (08/01/25 12:30) Ondansetron Inj. (Zofran 4mg/2ml Vial) (08/01/25 12:30) Electrocardiogram (08/01/25 11:27) Hgb A1c (08/01/25 10:35) Lipid Panel (08/01/25 10:35) TSH (08/01/25 10:35) Vital Signs 08/01/25 08/01/25 08/01/25 08/01/25 10:04 10:29 10:40 10:44 Temp 97.9 97.9 Pulse 87 86 64 Resp 18 22 18 B/P (MAP) 287/159 278/125 231/94 (139) Pulse Ox 100 100 99 O2 Flow Rate 0 0 08/01/25 08/01/25 08/01/25 08/01/25 10:44 10:56 11:25 11:35 Pulse 63 61 57 63 Resp 18 13 25 B/P (MAP) 231/94 180/153 102/137 Pulse Ox 99 100 100 08/01/25 08/01/25 08/01/25 08/01/25 11:42 12:00 12:27 12:44 Pulse 95 91 89 Resp 17 26 28 18 B/P (MAP) 194/91 Pulse Ox 100 99 100 08/01/25 08/01/25 08/01/25 08/01/25 13:05 13:12 13:30 13:45 Pulse 87 83 70 82 Resp 20 15 17 19 B/P (MAP) 196/91 178/91 183/95 184/100 Pulse Ox 99 100 100 98 08/01/25 08/01/25 08/01/25/23/25 14:00 14:15 14:19 15:11 Temp 97.9 97.9 Pulse 80 69 92 68 Resp 18 13 21 20 B/P (MAP) 208/110 199/99 220/122 (154) 197/97 (130) Pulse Ox 99 99 100 100 O2 Flow Rate 0 0 08/01/25 08/01/25 16:29 17:35 Temp 97.9 97.9 Pulse 69 64 Resp 17 15 B/P (MAP) 254/107 (156) 180/82 (114) Pulse Ox 100 99 O2 Flow Rate 0 0 Laboratory Tests Test 08/01/25 10:06 08/01/25 10:35 08/01/25 13:00 08/01/25 18:14 Glucometer 102 White Blood Count 7.4 Red Blood Count 5.48 Hemoglobin 10.5 L Hematocrit 33.7 L Mean Corpuscular Volume 61.6 L Mean Corpuscular Hemoglobin 19.1 L Mean Corpuscular Hemoglobin Concent 31.0 L Red Cell Distribution Width 20.0 H Platelet Count 331 Mean Platelet Volume 8.6 Neutrophils (%) (Auto) 60.5 Lymphocytes (%) (Auto) 32.4 Monocytes (%) (Auto) 5.4 Eosinophils (%) (Auto) 1.1 Basophils (%) (Auto) 0.6 Neutrophils # (Auto) 4.5 Lymphocytes # (Auto) 2.4 Monocytes # (Auto) 0.4 Eosinophils # (Auto) 0.1 Basophils # (Auto) 0.0 CBC Comment Platelet Estimate Normal Red Blood Cell Morphology Perf Hypochromasia 1+ Basophilic Stippling Anisocytosis 2+ Microcytosis 2+ Elliptocytes 1+ Prothrombin Time 10.7 10.9 INR International Normalized Ratio 1.0 1.1 Activated Partial Thromboplast Time 27 Coagulation Comments Sodium Level 139 Potassium Level 3.6 Chloride Level 105 Carbon Dioxide Level 26.3 Anion Gap 8 Blood Urea Nitrogen 9 Creatinine 0.86 Estimated GFR/1.73 m2 70 BUN/Creatinine Ratio 10.5 Glucose Level 93 Hemoglobin A1c 5.6 Calcium Level 8.7 Troponin I High Sensitivity 11 13 Albumin 3.0 L Triglycerides Level 95 Cholesterol Level 237 H LDL Cholesterol 175 H HDL Cholesterol 46 Cholesterol/HDL Ratio 5.2 H Thyroid Stimulating Hormone (TSH) 0.75 Chemistry Comments Troponin I High Sens Percent Delta 18 Troponin I Hi Sens Absolute Change 2 EKG/XRAY/CT/US/VASC/MRI EKG : Additional Comment EKG as interpreted by ED MD indicating normal sinus rhythm at a rate of 73 beats per minute, no ischemia, normal axis Chest X-Ray : Additional Comments EXAM: DI CHEST,SINGLE VIEW Indication: Stroke Alert Technique: Single frontal view of the chest was obtained Comparison: DI CHEST,SINGLE VIEW on DOS: 09/14/23, CHEST,SINGLE VIEW on DOS: 04/22/21, CHEST,TWO VIEWS on DOS: 02/16/19 FINDINGS: Lines and Tubes: None Lungs: No focal consolidation. Pleura: No effusion. No pneumothorax. Cardiomediastinal contours: Unremarkable Bones: No acute osseous abnormality. IMPRESSION: No acute cardiopulmonary disease. : Impression XAM: CT CTA NECK/HEAD DATE OF SERVICE: 08/01/2025 12:44 PM ORDERING PHYSICIAN: JOHN MILLAN REASON FOR EXAM: left sided weakness TECHNIQUE: CTA of the brain and neck was performed after the administration of contrast . Axial images of the head and neck are obtained. Coronal and sagittal images were then reformatted for review. MIP reformats were obtained and reviewed. COMPARISON: CT head from today FINDINGS: FINDINGS: The right common carotid artery demonstrates no high-grade stenosis. Right internal carotid artery demonstrates no high-grade stenosis. Right middle cerebral artery demonstrates no high-grade stenosis. The right anterior cerebral artery demonstrates no high-grade stenosis. The left common carotid artery demonstrates mild soft plaque of the left carotid bulb. Less than 50% stenosis of the proximal left ICA. The left middle cerebral artery focal 50% stenosis of the distal M1 segment The left anterior cerebral artery demonstrates no high-grade stenosis. The right vertebral artery demonstrates no high-grade stenosis. The left vertebral artery demonstrates no high-grade stenosis. Basilar artery demonstrates no high-grade stenosis. The right posterior cerebral artery demonstrates multifocal moderate grade stenosis of the P1 and P2 segments, approximately 50-60% stenoses. Right frontoparietal encephalomalacia. Cavum septum pellucidum. Left maxillary sinus disease. IMPRESSION: No large vessel occlusion. Focal 50% stenosis of the left MCA distal M1 segment. Approximately 50-60% stenosis of the right posterior cerebral artery P1 and P2 segments ICAL INFORMATION: 49 years old, Female; Stroke Alert. TECHNIQUE: Axial imaging was obtained through the brain without contrast. Coronal and sagittal reformatted images were obtained, reviewed, and stored. Images were reviewed in brain and bone windows. All CT scans at this medical facility are performed using dose modulation techniques as appropriate to a performed exam including the following: Automated exposure control was utilized; adjustment of the MA and/or KV according to patient size; and use of iterative reconstruction technique. CTDIvol = 55.96 mGy DLP = 1053.21 mGy-cm COMPARISON: CT CT STROKE ALERT on DOS: 09/14/23, CT CTA NECK/HEAD on DOS: , CT HEAD on DOS: 04/22/21 FINDINGS: There is no acute intracranial hemorrhage. No mass effect or midline shift. Cavum septum pellucidum et vergae incidentally noted. Ventricles are stable in size. Basal cisterns are patent. Encephalomalacia in the right frontoparietal region appears unchanged compared to the prior exam. The calvarium is unremarkable. Paranasal sinuses and mastoid air cells are clear. IMPRESSION: 1. No CT evidence of acute intracranial abnormality. 2. Nonacute findings as described above. Critical findings Critical Result: Stroke Alert Findings discussed with Dr. Millan, at 08/01/2025 12:31 PM CDT, and acknowledged receipt and understanding of the findings. Medical Decision Making Additional Information 49-year-old female presenting with left-sided paresthesia and blurry vision. Her workup is negative for an acute infarct. This included a CT of the head noncontrast and a CTA. She does have some stenosis in her cerebral arteries which are chronic for her. Tele neurology assessed the patient. They recommended admission for monitoring and an MRI. Patient was also very hypertensive and received 20 mg of IV hydralazine. This improved her blood pressure with the patient also became nauseous and anxious and required antiemetics as well as IV diazepam. Patient admitted to the hospitalist service. Departure Disposition: ADMITTED INPATIENT Admission Level of Care: Neuro with Tele Impression: Primary Impression: Hypertensive urgency Additional Impressions: Paresthesia of left arm and leg Facial paresthesia Condition: Guarded Referrals: NO PRIMARY CARE PROVIDER (PCP) Prescriptions Lisinopril (Lisinopril) 20 Mg Tablet 1 TAB PO BID, #60 TAB Prov: KENDAL PECK MD 08/03/25 Clopidogrel Bisulfate (Plavix) 75 Mg Tablet 1 TAB PO DAILY for 30 Days, #30 TAB 0 Refills Prov: KENDAL PECK MD 08/03/25 Signature Scribe Signature: 1 Attestation: 1 PRINCE MENA Aug 01, 2025 10:12 JOHN MILLAN MD Aug 01, 2025 10:45
--- NOTE | 2025-08-01 10:34 | RADIOLOGY REPORT ---
CLINICAL INFORMATION: 49 years old, Female; Stroke Alert. TECHNIQUE: Axial imaging was obtained through the brain without contrast. Coronal and sagittal reformatted images were obtained, reviewed, and stored. Images were reviewed in brain and bone windows. All CT scans at this medical facility are performed using dose modulation techniques as appropriate to a performed exam including the following: Automated exposure control was utilized; adjustment of the MA and/or KV according to patient size; and use of iterative reconstruction technique. CTDIvol = 55.96 mGy DLP = 1053.21 mGy-cm COMPARISON: CT CT STROKE ALERT on DOS: 09/14/23, CT CTA NECK/HEAD on DOS: 09/14/23, CT HEAD on DOS: 04/22/21 FINDINGS: There is no acute intracranial hemorrhage. No mass effect or midline shift. Cavum septum pellucidum et vergae incidentally noted. Ventricles are stable in size. Basal cisterns are patent. Encephalomalacia in the right frontoparietal region appears unchanged compared to the prior exam. The c alvarium is unremarkable. Paranasal sinuses and mastoid air cells are clear. IMPRESSION: 1. No CT evidence of acute intracranial abnormality. 2. Nonacute findings as described above. Critical findings Critical Result: Stroke Alert Findings discussed with Dr. Radford, at 08/01/2025 12:31 PM CDT, and acknowledged receipt and understanding of the findings. ..
[2025-08-01 10:41] LABS: MEAN PLATELET VOLUME 8.6 FL (7.4-10.4); RED CELL DISTRIBUTION WIDTH 20.0 % (11.5-14.5)
--- NOTE | 2025-08-01 10:42 | ELECTROCARDIOGRAPH REPORT ---
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 Kirk Servin Measurements Intervals [place] Rate: 63 P: 40 [place]: 133 QRS: 16 QRSD: 80 T: 40 QT: 428 QTc: 439 Interpretive Statements Sinus rhythm Electronically Signed On 08-10-2025 21:52:[address] Kirk Servin Please click the below link to view image of tracing.
--- NOTE | 2025-08-01 10:48 | CONSULTATION REPORT ---
History of Present Illness Providers to CC ~ Refering MD: BENJIE Allergies: Coded Allergies: ibuprofen (Unverified Allergy, Mild, hives; rash, 04/05/25) States toradol with no issues Penicillins (Verified Allergy, Unknown, hives; rash, 04/05/25) >5 years ago, hives, no treatment required Home Medications Home Medications Active Methocarbamol 750 Mg Tablet 1 Tab PO Q8H Clopidogrel (Clopidogrel Bisulfate) 75 Mg Tablet 75 Mg PO DAILY 30 Days Do not stop medication unless instructed by prescriber. Reported Atorvastatin Calcium 40 Mg Tablet 1 Tablet PO DAILY Ecotrin* (Aspirin) 81 Mg Tablet.dr 1 Tab PO DAILY 30 Days Losartan Potassium 100 Mg Tablet 1 Tab PO DAILY Sertraline HCl 50 Mg Tablet 1 Tab PO DAILY Amlodipine Besylate 10 Mg Tablet 10 Mg PO DAILY Physical Exam Last Vital Signs Recorded: Temperature: 98.0, Source: Temporal, Heart Rate: 63, Respiratory Rate: 18, BP: 231/94, Pulse Oximetry: 99, Weight: 79.000 Assessment/Plan Additional Plan [place] [facility] Note # Demographics Consult Type: Acute Stroke Level 2 (4.5-24 hrs) Patient Location: Emergency Room First Name: HASMUKH Last Name: JAMES Date of : 1975 Age: 49 Gender: Female Facility: [facility] Time of Initial Page (): 08/01/2025 10:25 First Contact with Site (): 08/01/2025 10:26 # HPI Chief Complaint: - numbness History: 49 y/o woman with "felt like I am having another stroke." Left face numbness and left eye blurriness. Symptom started Thursday. Symptoms the same since onset. 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 No thinners at baseline. Has been feeling dizzy/faint the past few days also. Is also coughing a lot. # Scores Time of exam and NIHSS (): 08/01/2025 10:30 Level of Consciousness 1a: [0] = Alert; keenly responsive LOC Questions 1b: [0] = Answers both questions correctly LOC Commands 1c: [0] = Performs both tasks correctly Best Gaze 2: [0] = Normal Visual 3: [0] = No visual loss Facial Palsy 4: [2] = Partial paralysis Motor Arm Left 5a: [1] = Drift Motor Arm Right 5b: [0] = No drift Motor Leg Left 6a: [0] = No drift Motor Leg Right 6b: [0] = No drift Limb Ataxia 7: [0] = Absent Sensory 8: [1] = [id number] sensory loss Best Language 9: [0] = No aphasia Dysarthria 10: [0] = Normal Extinction and Inattention 11: [0] = No abnormality NIHSS Total: 4 # Exam SBP: 278 DBP: 125 # Data Head CT: - no bleed - per radiologist read # Assessment Impression: - Other Numbness as a new stroke vs recrudescence, possible hypertensive # Plan Thrombolytic/Intervention: NOT IV Thrombolysis or IA Intervention candidate Thrombolytic Exclusion: > 4.5 hours Intraarterial Exclusion: - clinical exam not consistent with presence of large vessel occlusion (LVO), can reconsider if LVO found on vascular imaging Imaging: (urgency: routine): - MRI Brain without contrast Other: - If patient has any neurological deterioration please call me back immediately # Logistics Attestation of consult completion: The patient is located at: [facility]. Facility staff participated in the visit. I performed this telemedicine visit from my offsite office utilizing interactive 2 way audio and visual telecommunication technology at the request of the onsite emergency room provider. Total time spent in telemedicine encounter: I spent 20 minutes reviewing clinical data and/or imaging, obtaining history, examining the patient, communicating with the onsite care team, and in preparation of this report. # Demographics First Name: HASMUKH Last Name: JAMES Facility: [facility] SILVIANO SINHA MD Aug 01, 2025 10:48
[2025-08-01 10:55] LABS: CREATININE 0.86 MG/DL (0.40-0.90); TOTAL CARBON DIOXIDE 26.3 MMOL/L (24-32); eCRCL 60 ML/MIN; eGFR 70 ML/MIN
[2025-08-01] MEDS: hydrALAZINE 20mg/ml inj. IV ONE (10:56)
[2025-08-01 10:57] LABS: APTT 27 SECONDS (22-32); INR 1.0 INR
[2025-08-01 11:09] LABS: PLATELET ESTIMATE NORMAL
[2025-08-01 11:12] LABS: ELLIPTOCYTES 1+
[2025-08-01] MEDS: normal saline 1000ml 1,000 ML IV ONE (11:33)
--- NOTE | 2025-08-01 11:47 | RADIOLOGY REPORT ---
EXAM: DI CHEST,SINGLE VIEW Indication: Stroke Alert Technique: Single frontal view of the chest was obtained Comparison: DI CHEST,SINGLE VIEW on DOS: 09/14/23, CHEST,SINGLE VIEW on DOS: 04/22/21, CHEST,TWO VIEWS on DOS: 02/16/19 FINDINGS: Lines and Tubes: None Lungs: No focal consolidation. Pleura: No effusion. No pneumothorax. Cardiomediastinal contours: Unremarkable Bones: No acute osseous abnormality. IMPRESSION: No acute cardiopulmonary disease.
--- NOTE | 2025-08-01 12:35 | ELECTROCARDIOGRAPH REPORT ---
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 Kirk Servin Measurements Intervals [place] Rate: 73 P: 59 [place]: 138 QRS: 41 QRSD: 117 T: 35 QT: 448 QTc: 494 Interpretive Statements Sinus rhythm Probable left ventricular hypertrophy Borderline prolonged QT interval Electronically Signed On 08-10-2025 21:52:[address] Kirk Servin Please click the below link to view image of tracing.
[2025-08-01] MEDS: ondansetron/PF 4mg/2ml inj IV ONE (12:41)
[2025-08-01] MEDS: diazepam inj 5 MG/ML inj. IV ONE (12:44)
--- NOTE | 2025-08-01 13:18 | RADIOLOGY REPORT ---
EXAM: CT CTA NECK/HEAD DATE OF SERVICE: 08/01/2025 12:44 PM ORDERING PHYSICIAN: JOHN MILLAN REASON FOR EXAM: left sided weakness TECHNIQUE: CTA of the brain and neck was performed after the administration of contrast . Axial images of the head and neck are obtained. Coronal and sagittal images were then reformatted for review. MIP reformats were obtained and reviewed. COMPARISON: CT head from today FINDINGS: FINDINGS: The right common carotid artery demonstrates no high-grade stenosis. Right internal carotid artery demonstrates no high-grade stenosis. Right middle cerebral artery demonstrates no high-grade stenosis. The right anterior cerebral artery demonstrates no high-grade stenosis. The left common carotid artery demonstrates mild soft plaque of the left carotid bulb. Less than 50% stenosis of the proximal left ICA. The left middle cerebral artery focal 50% stenosis of the distal M1 segment The left anterior cerebral artery demonstrates no high-grade stenosis. The right vertebral artery demonstrates no high-grade stenosis. The left vertebral artery demonstrates no high-grade stenosis. Basilar artery demonstrates no high-grade stenosis. The right posterior cerebral artery demonstrates multifocal moderate grade stenosis of the P1 and P2 segments, approximately 50-60% stenoses. Right frontoparietal encephalomalacia. Cavum septum pellucidum. Left maxillary sinus disease. IMPRESSION: No large vessel occlusion. Focal 50% stenosis of the left MCA distal M1 segment. Approximately 50-60% stenosis of the right posterior cerebral artery P1 and P2 segments
[2025-08-01] MEDS ORDERED: magnesium Cl slow-release 64mg tablet PO PRN (15:55)
[2025-08-01] MEDS ORDERED: magnesium hydroxide 30ml (MOM) UD suspension PO PRN (15:55)
[2025-08-01] MEDS ORDERED: magnesium sulf-water 2g/50mL 50 ML IV PRN (15:55)
[2025-08-01] MEDS ORDERED: mag hydrox/Alum hydrox/simeth 30ml oral suspension PO PRN (15:55)
[2025-08-01] MEDS ORDERED: magnesium sulf-water 4G/100mL 100 ML IV PRN (15:55)
[2025-08-01] MEDS ORDERED: HYDROcodone/acetaminophen 10/325mg tab PO PRN (15:55)
[2025-08-01] MEDS ORDERED: HYDROcodone/acetaminophen 5mg/325mg tablet PO PRN (15:55)
[2025-08-01] MEDS ORDERED: potassium Cl 40MEQ/1/2NS 520ml 520 ML IV PRN (15:55)
[2025-08-01] MEDS ORDERED: morphine 4 MG/ML inj SYRINge IV PRN ×2 (15:55)
[2025-08-01] MEDS ORDERED: potassium Cl 20 mEq SR tablet PO PRN ×2 (15:55)
[2025-08-01] MEDS ORDERED: ondansetron/PF 4mg/2ml inj IV PRN (15:55)
[2025-08-01] MEDS: labetalol 20mg/4ml (5mg/ml) syringe IV ONE (17:01)
[2025-08-01] MEDS: aspirin 325mg tablet, delayed-release (Ecotrin) PO ONE (17:01)
--- NOTE | 2025-08-01 17:02 | HISTORY AND PHYSICAL-Residence ---
History & Physical Providers to CC Resident Creating Document: CHUCHO REYESVANI LENNY ~ History of Present Illness Primary Medical Doctor: [facility] Reason for Admit\Complaint: Ischemic stroke History of Present Illness This is a 49-year-old female with past history of ischemic stroke and hypertension who came into the ER complaining of numbness and weakness on the left side of the body. She has a history of 2 ischemic stroke one 5 years ago and one 1 year ago. She has residual weakness in her left had and legs on facial droop on the left side from a previous stroke. This time she complains of numbness on the left side of her face and left hand since Thursday associated with worsening weakness such that she was not able to stand up, ambulate, grasp objects. She complained about salivating from her left corner of the mouth, blurry vision in the left eye. She developed headache since yesterday, bitemporal, dull aching, 5/10, nonradiating, not associated with nausea vomiting. No history of coagulopathy. She gives history of high blood pressure recording when she visited her primary care in March, she was advised renal ultrasound which was normal. No history of shortness of breath, chest pain, leg swelling, palpitation. According to her she has been consistent with the medication. Family history of stroke- her father from a stroke at the age of 50 after developing lung cancer Her mother had a mild stroke in her older years. Allergies: Coded Allergies: ibuprofen (Unverified Allergy, Mild, hives; rash, 04/05/25) States toradol with no issues Penicillins (Verified Allergy, Unknown, hives; rash, 04/05/25) >5 years ago, hives, no treatment required Home Medications Home Medications Active Methocarbamol 750 Mg Tablet 1 Tab PO Q8H Clopidogrel (Clopidogrel Bisulfate) 75 Mg Tablet 75 Mg PO DAILY 30 Days Do not stop medication unless instructed by prescriber. Reported Atorvastatin Calcium 40 Mg Tablet 1 Tablet PO DAILY Ecotrin* (Aspirin) 81 Mg Tablet.dr 1 Tab PO DAILY 30 Days Losartan Potassium 100 Mg Tablet 1 Tab PO DAILY Sertraline HCl 50 Mg Tablet 1 Tab PO DAILY Amlodipine Besylate 10 Mg Tablet 10 Mg PO DAILY Past Social History Smoking: Non-Smoker (Smoked 1 cigarette a day for a year in college) Alcohol Use: None Drug Use: None Lives with: S/O Lives In: Home Occupation: unemployed (On disability) Domestic Violence: Neg ROS Constitutional: Reports: weakness Eyes: Reports: blurred vision ENT: Reports: no symptoms reported Respiratory: Reports: no symptoms reported Cardiovascular: Reports: no symptoms reported Gastrointestinal: Reports: no symptoms reported Genitourinary: Reports: no symptoms reported Female Genitalia: Reports: no reported symptoms Neurological: Reports: headache, dizziness, left sided numbness, left sided weakness, problems walking Musculoskeletal: Reports: no symptoms reported Integumentary: Reports: no symptoms reported Allergic/Immunologic: Reports: no symptoms reported Hematologic/Lymphatic: Reports: no symptoms reported Endocrine: Reports: no symptoms reported Psychiatric: Reports: no symptoms reported Exam Vitals: Vital Signs Date Time Temp Pulse Resp B/P (MAP) Pulse Ox O2 Delivery O2 Flow Rate FiO2 08/01/25 16:29 97.9 69 17 254/107 (156) 100 0 General: General: Well alert, well oriented, not confused, not agitated, not in acute distress, well cooperated during the physical. HEENT: Conjunctive are pink, sclerae clear, no icterus, pupil is equal in both sides, reactive to light, no ear discharge, no pharyngeal erythema or an edema. Neck: Supple, no JVD, no lymphadenopathy and thyromegaly. Chest: Equal air entry on both lungs, no added sounds, no wheeze. Cardiovascular: S1-S2 regular sinus rhythm and, regular rate, no gallops, no rubs, no murmurs Abdomen: No visible peristalsis, Bowel sounds present on auscultation, soft, nontender, no guarding, no rigidity Extremities: No obvious deformities, no pitting edema bilaterally, capillary refill intact, peripheral pulsations are intact on both sides Musculoskeletal: No joint swelling, deformities, inflammations, and no scoliosis and back tenderness Skin: Warm and dry. MENTAL STATUS: AAOx3 LANG/SPEECH: Fluent, intact naming, repetition & comprehension CRANIAL NERVES: II: Pupils equal and reactive, no RAPD, normal visual field and fundus III, IV, : EOM intact, no gaze preference or deviation V: normal VII: Facial drooping noted on the left side. Loss of nasolabial fold on the left side. VIII: normal hearing to speech MOTOR: 5/5 in right upper and lower extremities 4/5 in left upper and lower extremities REFLEXES: 2/4 throughout, bilateral flexor plantars SENSORY: Normal to touch, temperature & pin prick in right upper and lower extremiteis Fine touch, hot cold, proprioception last in left upper and lower extremity. COORD: Normal finger to nose and heel to castaneda, no tremor, no dysmetria Gait could not be assessed in the ER. Diagnostic Data Last Recorded Lab Results: 08/01/25 1035 08/01/25 1035 Diagnostic Data: Laboratory Tests Test 08/01/25 10:35 Prothrombin Time 10.7 SECONDS (9.0-12.0) INR International Normalized Ratio 1.0 INR Activated Partial Thromboplast Time 27 SECONDS (22-32) Coagulation Comments Counseling Services Smoking & Tobacco Cessation: N/A Advance Care Planning Advanced Care plannin - 30 Minutes (Full code) Additional Plan Assessment: This is a 49-year-old female with past history of ischemic stroke and hypertension who came into the ER complaining of numbness and weakness on the left side of the body. Plan: Numbness and weakness most likely due to ischemic stroke NIHSS score-5 Vitals: Blood pressure 230/110, pulse rate in 70s, maintaining saturation in room air Chest x-ray: No acute cardiopulmonary disease. Head CT: No CT evidence of acute intracranial abnormality. Head and neck CTA: No large vessel occlusion. Focal 50% stenosis of the left MCA distal M1 segment. Approximately 50-60% stenosis of the right posterior cerebral artery P1 and P2 segments Neurology consulted EKG: Sinus rhythm, normal P wave morphology, no ST segment deviation, normal R- wave progression. Plan: permissive hypertension Aspirin 325 mg p.o. once, Continue aspirin 81 mg p.o. daily, Atorvastatin 40 mg p.o. daily Not started clopidogrel in view of high blood pressure to prevent intracranial hemorrhage Plan for MRI head tomorrow. Ordered echo, hemoglobin A1c, lipid panel, TSH, coagulation profile. Hypertensive emergency Vitals: Blood pressure 230s to 250s/120s Received hydralazine 20 mg IV once and the blood pressure dropped to 130 in the ER Repeat blood pressure showed 250/120. Administered labetalol 10 mg IV once Plan: Labetalol 10 mg IV p.r.n. or hydralazine 10 mg IV p.r.n. only if the blood pressure is above 220/120 We will withhold home medication amlodipine 10 mg p.o. daily, losartan 100 mg p.o. daily for 48 hours to maintain permissive hypertension Code status: Full code DVT prophylaxis: SCDs Analgesia/sedation: Morphine/Sebago p.r.n. Line/tube: PIV GI prophylaxis: None Nutrition: Regular diet PT: Ordered. Prognosis: Guarded Disposition: Admit to ortho Theodore Reyes MD PGY1, Internal Medicine [facility] Date of Service: Aug 01, 2025 Billing Provider: KENDAL PECK MD Common Visit Codes: 58210-BYQGIAU INP/OBS CARE (HIGH) Secondary Visit Codes: 85388-NHJRGRJO CARE PLAN 30 MINUTES THEODORE REYES, RES Aug 01, 2025 17:02 KENDAL PECK MD Aug 03, 2025 05:49
[2025-08-01 17:39] LABS: CHOL/HDL RATIO 5.2 (0.00-4.99); LDL CHOLESTEROL 175 MG/DL (50-100)
[2025-08-01 18:39] LABS: INR 1.1 INR
[2025-08-01] MEDS ORDERED: labetalol 20mg/4ml (5mg/ml) syringe IV PRN (19:40)
[2025-08-01] MEDS ORDERED: FERR325T29 PO (19:40)
[2025-08-01] MEDS: K and/or MAG REPLACEMENT MC SCH (19:57)
[2025-08-01] MEDS: docusate sod 100mg capsule PO SCH (20:00)
[2025-08-01] MEDS: hydrALAZINE 20mg/ml inj. IV PRN (21:20)
[2025-08-02] VITALS (9 sets, daily range): BP systolic 164–252; BP diastolic 57–113; PULSE 61–66; RESP 14–16; TEMP 97.2–98.2; O2SAT 98–99
[2025-08-02 05:08] LABS: MEAN PLATELET VOLUME 8.9 FL (7.4-10.4); RED CELL DISTRIBUTION WIDTH 20.1 % (11.5-14.5)
[2025-08-02 05:30] LABS: CREATININE 0.78 MG/DL (0.40-0.90); TOTAL CARBON DIOXIDE 26.3 MMOL/L (24-32); eCRCL 67 ML/MIN; eGFR 79 ML/MIN
[2025-08-02] MEDS: aspirin 81mg, enteric-coated 1 TAB TABLET.DR PO SCH (08:44)
--- NOTE | 2025-08-02 14:35 | CARDIOLOGY REPORT ---
APPROVED REPORT EXAM: Comprehensive 2D, Doppler, and color-flow Echocardiogram. Patient Location: ER 3 Blood Pressure: 221/89 mmHg Heart Rate: 60 bpm Rhythm: SINUS Indications TRANSIENT ISCHEMIC ATTACK STROKE X2 2023 HYPERTENSION Customer Relations Assistant: none Previous echo: 09/14/23 [facility] (EF 75-80%, LV grad 8 mmHg, no change w/Araseli, mild MR, trace TR) 2D Dimensions RVDd 2.6 cm LA Diam 5.4 cm LVOT Diameter 1.94 (1.8-2.4cm) Ao Asc Diam. 2.93 cm M-Mode Dimensions Left Atrium(MM) 4.94 (2.5-4.0cm) Aortic Root 2.54 (2.2-3.7cm) Aortic Cusp Exc 1.92 (1.5-2.0cm) MV EPSS 0.6 (<0.5cm) Biplane 2D LA Volumes LA ESV Index 35.34 mL/m2 Aortic Valve AoV Peak Tico. 182.1 cm/s AoV VTI 30.8 cm AO Peak GR. 13.3 mmHg AO Mean GR. 7 mmHg LVOT VTI 28.97 cm LVOT Peak Tico. 135.9 cm/s RA(VTI)/BSA 2.77 cm2/m2 RA (VTI) 2.77 cm2 Mitral Valve MV E Velocity 79.8 cm/s MV Peak Gr. 4 mmHg MV DECEL TIME 240 ms MV A Velocity 103.4 cm/s MV PHT 52 ms E/A Ratio 0.8 MVA (PHT) 4.23 cm2 MV VMax 95.9 cm/s TDI Medial E' P. V 6.69 cm/s E/Medial E' 11.9 Pulmonary Vein S1 Velocity 63.4 cm/s D2 Velocity 35.5 cm/s PVa Velocity 44.7 cm/s PVa Duration 100 msec LEFT VENTRICLE Hypovolemic LV size and hyperdynamic function. Moderate concentric hypertrophy. Resting LV gradient of 5 mmHg. No change with Valsalva maneuver. LV gradient likely due to hyperdynamic LV function. Overall LVEF is 70-75%. RIGHT VENTRICLE RV is normal size and function. ATRIA Left atrium is mildly dilated. AORTIC VALVE Trileaflet AV appears mildly sclerotic without stenosis or insufficiency. MITRAL VALVE Mild MV annular calcification without stenosis. Trace regurgitation. TRICUSPID VALVE TV appears structurally normal with trace regurgitation. PULMONIC VALVE Normal PV without stenosis, physiologic insufficiency. GREAT VESSELS Aortic root is normal in size. Ascending aorta is normal in size. PERICARDIUM Normal pericardium. No effusion. Other Information Study Quality: Adequate Conclusion Overall LVEF is 70-75%. Hypovolemic LV size and hyperdynamic function. Moderate concentric hypertrophy. Resting LV gradient of 5 mmHg. No change with Valsalva maneuver. LV gradient likely due to hyperdynamic LV function. RV is normal size and function. Trileaflet AV appears mildly sclerotic without stenosis or insufficiency. Mild MV annular calcification without stenosis. Trace regurgitation. TV appears structurally normal with trace regurgitation. Normal PV without stenosis, physiologic insufficiency. Normal pericardium. No effusion.
--- NOTE | 2025-08-02 16:26 | PROGRESS NOTE- Residence ---
Progress Note - Resident Providers to CC Resident Creating Document: THEODORE REYES, LENNY ~ Central Line/PICC still needed: N\A Ruiz-Non Protocol Ruiz Indications Met/Not Met: F/C Indications Not Met Antibiotic Timeout Antibiotic Ordered?: No Subjective Examined the patient bedside. No acute symptoms overnight. Still refusing MRI. Continues to have residual weakness. Objective Vital Signs Date Time Temp Pulse Resp B/P (MAP) Pulse Ox O2 Delivery O2 Flow Rate FiO2 08/02/25 14:15 66 204/89 (127) 98 Room Air 08/02/25 08:00 14 08/02/25 06:00 97.4 08/01/25 21:23 0 Result Diagram: 08/02/2543908/02/25439 General: Well alert, well oriented, not confused, not agitated, not in acute distress, well cooperated during the physical. HEENT: Conjunctive are pink, sclerae clear, no icterus, pupil is equal in both sides, reactive to light, no ear discharge, no pharyngeal erythema or an edema. Neck: Supple, no JVD, no lymphadenopathy and thyromegaly. Chest: Equal air entry on both lungs, no added sounds, no wheeze. Cardiovascular: S1-S2 regular sinus rhythm and, regular rate, no gallops, no rubs, no murmurs Abdomen: No visible peristalsis, Bowel sounds present on auscultation, soft, nontender, no guarding, no rigidity Extremities: No obvious deformities, no pitting edema bilaterally, capillary refill intact, peripheral pulsations are intact on both sides Musculoskeletal: No joint swelling, deformities, inflammations, and no scoliosis and back tenderness Skin: Warm and dry. MENTAL STATUS: AAOx3 LANG/SPEECH: Fluent, intact naming, repetition & comprehension CRANIAL NERVES: II: Pupils equal and reactive, no RAPD, normal visual field and fundus III, IV, : EOM intact, no gaze preference or deviation V: normal VII: Facial drooping noted on the left side. Loss of nasolabial fold on the left side. VIII: normal hearing to speech MOTOR: 5/5 in right upper and lower extremities 4/5 in left upper and lower extremities REFLEXES: 2/4 throughout, bilateral flexor plantars SENSORY: Normal to touch, temperature & pin prick in right upper and lower extremiteis Fine touch, hot cold, proprioception last in left upper and lower extremity. COORD: Normal finger to nose and heel to castaneda, no tremor, no dysmetria Gait could not be assessed in the ER. Coagulation Studies Laboratory Tests Test 08/01/25 10:35 08/01/25 18:14 Activated Partial Thromboplast Time 27 SECONDS (22-32) Prothrombin Time 10.9 SECONDS (9.0-12.0) INR International Normalized Ratio 1.1 INR Coagulation Comments Advance Care Planning Advanced Care plannin - 30 Minutes Assessment Assessment This is a 49-year-old female with past history of ischemic stroke and hypertension who came into the ER complaining of numbness and weakness on the left side of the body. Plan Plan Numbness and weakness most likely due to ischemic stroke NIHSS score-5 Vitals: Blood pressure 230/110, pulse rate in 70s, maintaining saturation in room air Chest x-ray: No acute cardiopulmonary disease. Head CT: No CT evidence of acute intracranial abnormality. Head and neck CTA: No large vessel occlusion. Focal 50% stenosis of the left MCA distal M1 segment. Approximately 50-60% stenosis of the right posterior cerebral artery P1 and P2 segments Neurology consulted EKG: Sinus rhythm, normal P wave morphology, no ST segment deviation, normal R- wave progression. Plan: permissive hypertension Aspirin 325 mg p.o. once, Continue aspirin 81 mg p.o. daily, Atorvastatin 40 mg p.o. daily Not started clopidogrel in view of high blood pressure to prevent intracranial hemorrhage Plan for MRI head tomorrow. Ordered echo, hemoglobin A1c, lipid panel, TSH, coagulation profile. 08/02/2025: Her blood pressure has been ranging from systolic- 160s to 250s, diastolic 80s to 100s Patient is not agreeing for MRI, even with medication for anxiety/claustrophobia. She has not done MRI even when she had a stroke for the 1st time. Waiting for carotid Doppler. Echo: Overall LVEF is 70-75%. Hypovolemic LV size and hyperdynamic function. Moderate concentric hypertrophy. Resting LV gradient of 5 mmHg. No change with Valsalva maneuver. LV gradient likely due to hyperdynamic LV function. RV is normal size and function. Trileaflet AV appears mildly sclerotic without stenosis or insufficiency. Mild MV annular calcification without stenosis. Trace regurgitation. TV appears structurally normal with trace regurgitation. Normal PV without stenosis, physiologic insufficiency. Normal pericardium. No effusion. Hemoglobin A1c 5.6 PT 10.9, INR 1.1, APTT 27. Hypertensive emergency Vitals: Blood pressure 230s to 250s/120s Received hydralazine 20 mg IV once and the blood pressure dropped to 130 in the ER Repeat blood pressure showed 250/120. Administered labetalol 10 mg IV once Plan: Labetalol 10 mg IV p.r.n. only if the blood pressure is above 220/120 We will withhold home medication amlodipine 10 mg p.o. daily, losartan 100 mg p.o. daily for 48 hours to maintain permissive hypertension 08/02/2025: Her blood pressure has been ranging from systolic- 160s to 250s, diastolic 80s to 100s Continued her home blood pressure medication amlodipine 10 mg p.o. daily, losartan 100 mg p.o. daily. She has a p.r.n. medication for labetalol 10 mg IV if the blood pressure is greater than 220/120 with her home meds. Hyperlipidemia: Total cholesterol 237, LDL 175, HDL 46, cholesterol to HDL ratio 5.2 Increased her home medication of atorvastatin 40 mg p.o. daily to atorvastatin 80 mg p.o. daily Code status: Full code DVT prophylaxis: SCDs Analgesia/sedation: Morphine/[place] p.r.n. Line/tube: PIV GI prophylaxis: None Nutrition: Heart healthy PT: Ordered. Prognosis: Guarded Disposition: Admit to ortho This case has been examined and reviewed by senior resident, PGY 3. Since patient had been on aspirin and experienced 3rd stroke, the disposition would be DAPT; aspirin plus Plavix for 21 days; we will continue Plavix 75 mg daily only afterward. Theodore Reyes MD PGY1, Internal Medicine [facility] Date of Service: Aug 02, 2025 Billing Provider: KENDAL PECK MD Common Visit Codes: [id number] INP/OBS CARE(HIGH) THEODORE REYES, RES Aug 02, 2025 16:26 BENTLEY ALAS, RES Aug 02, 2025 19:20 KENDAL PECK MD Aug 03, 2025 05:50
[2025-08-03 02:00] VITALS: BP 178/73; PULSE 56; RESP 12; TEMP 97.8; O2SAT 98
[2025-08-03 04:52] LABS: MEAN PLATELET VOLUME 8.7 FL (7.4-10.4); RED CELL DISTRIBUTION WIDTH 19.4 % (11.5-14.5)
[2025-08-03 05:19] LABS: CREATININE 0.67 MG/DL (0.40-0.90); TOTAL CARBON DIOXIDE 27.6 MMOL/L (24-32); eCRCL 77 ML/MIN; eGFR > 90 ML/MIN
[2025-08-03 06:00] VITALS: BP 168/82; PULSE 70; RESP 14; TEMP 97.6; O2SAT 98
[2025-08-03 08:00] VITALS: RESP 15; O2SAT 96
[2025-08-03 09:11] LABS: % IRON SATURATION 8 % (11-46)
[2025-08-03 10:00] VITALS: BP 165/74; PULSE 67; RESP 15; TEMP 97.8; O2SAT 96
--- NOTE | 2025-08-03 10:36 | VASCULAR REPORT ---
Carotid Duplex Date: 08/03/2025 08:54 AM Clinical History: Syncope Comparison: CT CTA NECK/HEAD on DOS: 08/01/25, CT CTA NECK/HEAD on DOS: 09/14/23, CT CERVICAL SPINE on DOS: 04/22/21, CT HEAD on DOS: 04/22/21 Technique: Duplex Doppler evaluation of the extracranial carotid and vertebral arteries including color Doppler and spectral/pulsed waveform analysis was performed. Findings: Indications Numbness weakness on left side. Risk Factors History of TIA. History of tobacco use. Hypertension Doppler Spectral Velocity Analysis Right Left pCCA 72/19 cm/s pCCA 92/20 cm/s dCCA 48/15 cm/s dCCA 81/31 cm/s ECA 143/cm/s ECA 105/ cm/s pICA 44/16 cm/s pICA 78/32 cm/s Kiran 56/24 cm/s Kiran 116/43 cm/s dICA 126/37 cm/s dICA 112/41 cm/s Vert 49/16 cm/s Vert. 68/20 cm/s Subcl. 151/cm/s Subcl. 136/ cm/s ICA/CCA 2.62 ICA/CCA 1.43 Real-Time B-Mode Imaging Area Findings Right Left CCA Plaque Composition Intimal thickening Intimal thickening CONCLUSION No sonographic evidence of stenosis or occlusion in bilateral carotid arteries. Arteries showed less than 50% stenosis. Antegrade flow noted in bilateral vertebral arteries. Multiphasic flow noted in bilateral subclavian arteries.
[2025-08-03 12:46] VITALS: BP 181/80; PULSE 67
[2025-08-03 14:41] VITALS: BP 165/80
[2025-08-03] MEDS ORDERED: CLOP-32 PO (14:43)
[2025-08-03] MEDS ORDERED: LISI20TA28 PO (14:43)
--- NOTE | 2025-08-03 20:30 | DISCHARGE SUMMARY-Residence ---
Discharge Summary Providers to CC Resident Creating Document: ERICTHEODORE, LENNY ~ Discharge Summary Admission Diagnosis: Ischemic stroke Hospital Course DATE OF ADMISSION: 08/01/2025 DATE OF DISCHARGE: 08/03/2025 Discharge Diagnosis\Comment: Cerebrovascular accident: Ischemic stroke Past history of ischemic stroke Hypertensive emergency Hypertension Hyperlipidemia Operations\Procedures: None Consultants: Neurology Complications: None Condition on DC: Stable New Medications: Clopidogrel Bisulfate (Plavix) 75 Mg Tablet 1 TAB PO DAILY for 30 Days, #30 TAB 0 Refills Lisinopril (Lisinopril) 20 Mg Tablet 1 TAB PO BID, #60 TAB Continued Medications: Amlodipine Besylate (Amlodipine Besylate) 10 Mg Tablet 10 MG PO DAILY Aspirin (Ecotrin*) 81 Mg Tablet.dr 1 TAB PO DAILY for 30 Days, #30 TAB Atorvastatin Calcium (Atorvastatin Calcium) 40 Mg Tablet 1 TABLET PO DAILY, #30 TABLET 5 Refills Ferrous Sulfate (Ferrous Sulfate) 325 Mg (65 Mg Iron) Tablet 1 TAB PO BID Sertraline HCl (Sertraline HCl) 50 Mg Tablet 1 TAB PO DAILY Discontinued Medications: Losartan Potassium (Losartan Potassium) 100 Mg Tablet 1 TAB PO DAILY Discharge Summary: History of presenting illness: This is a 49-year-old female with past history of ischemic stroke and hypertension who came into the ER complaining of numbness and weakness on the left side of the body. She has a history of 2 ischemic stroke one 5 years ago and one 1 year ago. She has residual weakness in her left had and legs on facial droop on the left side from a previous stroke. This time she complained of numbness on the left side of her face and left hand since Thursday associated with worsening weakness such that she was not able to stand up, ambulate, grasp objects. She complained about salivating from her left corner of the mouth, blurry vision in the left eye. She developed headache since yesterday, bitemporal, dull aching, 5/10, nonradiating, not associated with nausea vomiting. No history of coagulopathy. She gave history of high blood pressure recording when she visited her primary care in March, she was advised renal ultrasound which was normal. No history of shortness of breath, chest pain, leg swelling, palpitation. According to her she has been consistent with the medication. Family history of stroke- her father from a stroke at the age of 50 after developing lung cancer Her mother had a mild stroke in her older years. Hospital course: On arrival her blood pressure was in 250s systolic. She was given hydralazine 20 mg IV once in the ER, and she was on a p.r.n. medication labetalol 10 mg IV in case her blood pressure was over 220/120 to maintain permissive hypertension for the 1st 48 hours. We continued her home medication amlodipine 10 mg, losartan 100 mg, aspirin 81 mg on day 1. Her blood pressure was still fluctuating with systolic in 200s with this medication. We changed losartan 100 mg to lisinopril 20 mg p.o. daily and added clopidogrel 75 mg p.o. daily, which controlled her blood pressure in a better way. Stroke workup except MRI was negative. Neurology was consulted on admission. Advised MRI. CT showed previous ischemic stroke changes. No bleeds. The patient however refused MRI even after explaining the risk versus benefit, diagnostic criteria for ischemic stroke, offering medication to, during the procedure. She understands the full weight of her decision. She is hemodynamically stable and symptomatically better and hence being discharged. Vital Signs Date Time Temp Pulse Resp B/P (MAP) Pulse Ox O2 Delivery O2 Flow Rate FiO2 08/03/25 14:41 165/80 (108) 08/03/25 12:46 67 08/03/25 10:00 97.8 15 96 Room Air 08/02/25 20:00 0.0 Laboratory Tests Test 08/02/25 04:40 08/03/25 04:40 08/03/25 07:20 White Blood Count 9.9 X10'3 9.6 X10'3 Red Blood Count 5.10 X10'6 5.06 X10'6 Hemoglobin 9.8 g/dl 9.7 g/dl Hematocrit 31.5 % 31.1 % Mean Corpuscular Volume 61.7 FL 61.5 FL Mean Corpuscular Hemoglobin 19.2 PG 19.2 PG Mean Corpuscular Hemoglobin Concent 31.1 g/dL 31.2 g/dL Red Cell Distribution Width 20.1 % 19.4 % Platelet Count 326 X10'3 326 X10'3 Mean Platelet Volume 8.9 FL 8.7 FL Neutrophils (%) (Auto) 61.7 % 54.2 % Lymphocytes (%) (Auto) 30.3 % 36.8 % Monocytes (%) (Auto) 6.8 % 6.7 % Eosinophils (%) (Auto) 0.9 % 1.7 % Basophils (%) (Auto) 0.3 % 0.6 % Neutrophils # (Auto) 6.1 X10'3 5.2 X10'3 Lymphocytes # (Auto) 3.0 X10'3 3.5 X10'3 Monocytes # (Auto) 0.7 X10'3 0.6 X10'3 Eosinophils # (Auto) 0.1 X10'3 0.2 X10'3 Basophils # (Auto) 0.0 X10'3 0.1 X10'3 CBC Comment Sodium Level 140 MMOL/L 140 MMOL/L Potassium Level 3.8 MMOL/L 4.3 MMOL/L Chloride Level 106 MMOL/L 105 MMOL/L Carbon Dioxide Level 26.3 MMOL/L 27.6 MMOL/L Anion Gap 8 7 Blood Urea Nitrogen 13 MG/DL 16 MG/DL Creatinine 0.78 MG/DL 0.67 MG/DL Estimated GFR/1.73 m2 79 ML/MIN > 90 ML/MIN BUN/Creatinine Ratio 16.7 23.9 Glucose Level 100 MG/DL 98 MG/DL Calcium Level 8.4 MG/DL 8.2 MG/DL Magnesium Level 2.0 MG/DL 1.7 MG/DL Total Bilirubin 0.5 MG/DL 0.4 MG/DL Aspartate Amino Transf (AST/SGOT) 14 U/L 15 U/L Alanine Aminotransferase (ALT/SGPT) 11 U/L < 6 U/L Alkaline Phosphatase 47 IU/L 45 IU/L Total Protein 7.2 G/DL 7.2 G/DL Albumin 2.6 G/DL 2.6 G/DL Globulin 4.6 G/DL 4.6 G/DL Albumin/Globulin Ratio 0.6 0.6 Chemistry Comments Iron Level 27 UG/DL Total Iron Binding Capacity 353 UG/DL Percent Iron Saturation 8 % Ferritin 6 NG/ML Imaging: Echocardiogram: Overall LVEF is 70-75%. Hypovolemic LV size and hyperdynamic function. Moderate concentric hypertrophy. Resting LV gradient of 5 mmHg. No change with Valsalva maneuver. LV gradient likely due to hyperdynamic LV function. RV is normal size and function. Trileaflet AV appears mildly sclerotic without stenosis or insufficiency. Mild MV annular calcification without stenosis. Trace regurgitation. TV appears structurally normal with trace regurgitation. Normal PV without stenosis, physiologic insufficiency. Normal pericardium. No effusion. Chest x-ray: No acute cardiopulmonary process Head CT: There is no acute intracranial hemorrhage. No mass effect or midline shift. Cavum septum pellucidum et vergae incidentally noted. Ventricles are stable in size. Basal cisterns are patent. Encephalomalacia in the right frontoparietal region appears unchanged compared to the prior exam. The calvarium is unremarkable. Paranasal sinuses and mastoid air cells are clear. Head and neck CTA: No large vessel occlusion. Focal 50% stenosis of the left MCA distal M1 segment. Approximately 50-60% stenosis of the right posterior cerebral artery P1 and P2 segments Carotid ultrasound: No sonographic evidence of stenosis or occlusion in bilateral carotid arteries. Arteries showed less than 50% stenosis. Antegrade flow noted in bilateral vertebral arteries. Multiphasic flow noted in bilateral subclavian arteries. Physical exam on discharge General: General: Well alert, well oriented, not confused, not agitated, not in acute distress, well cooperated during the physical. HEENT: Conjunctive are pink, sclerae clear, no icterus, pupil is equal in both sides, reactive to light, no ear discharge, no pharyngeal erythema or an edema. Neck: Supple, no JVD, no lymphadenopathy and thyromegaly. Chest: Equal air entry on both lungs, no added sounds, no wheeze. Cardiovascular: S1-S2 regular sinus rhythm and, regular rate, no gallops, no rubs, no murmurs Abdomen: No visible peristalsis, Bowel sounds present on auscultation, soft, nontender, no guarding, no rigidity Extremities: No obvious deformities, no pitting edema bilaterally, capillary refill intact, peripheral pulsations are intact on both sides Musculoskeletal: No joint swelling, deformities, inflammations, and no scoliosis and back tenderness Skin: Warm and dry. MENTAL STATUS: AAOx3 LANG/SPEECH: Fluent, intact naming, repetition & comprehension CRANIAL NERVES: II: Pupils equal and reactive, no RAPD, normal visual field and fundus III, IV, : EOM intact, no gaze preference or deviation V: normal VII: Facial drooping noted on the left side. Loss of nasolabial fold on the left side. VIII: normal hearing to speech MOTOR: 5/5 in right upper and lower extremities 4/5 in left upper and lower extremities REFLEXES: 2/4 throughout, bilateral flexor plantars SENSORY: Normal to touch, temperature & pin prick in right upper and lower extremiteis Fine touch, hot cold, proprioception last in left upper and lower extremity. COORD: Normal finger to nose and heel to castaneda, no tremor, no dysmetria Gait could not be assessed in the ER. Discharge instructions: Take clopidogrel 75 mg p.o. daily Your hypotension medication has been changed to lisinopril 20 mg p.o. b.i.d. Losartan 100 mg p.o. daily Continue other home medication Follow-up with your primary care provider in 1 week Visit ER immediately in case of acute symptoms including weakness, numbness, dizziness, LOC, difficulty swallowing, syncopal episodes immediately. *Problems/Diagnosis: (1) Ischemic stroke Status: Acute (2) Hypertensive emergency Status: Acute (3) Hypertension Status: Chronic (4) Uncontrolled hypertension Status: Acute (5) Facial paresthesia Status: Chronic (6) Paresthesia of left arm and leg Status: Chronic (7) Hyperlipidemia Status: Acute Total Time Spent on D/C: > 30 Minutes Counseling Services Smoking & Tobacco Cessation: N/A Date of Service: Aug 03, 2025 Billing Provider: KENDAL PECK MD Common Visit Codes: [id number]-[id number] DISCH DAY >30min THEODORE REYES, LENNY Aug 03, 2025 20:07 KENDAL PECK MD Aug 03, 2025 21:26
== END 2025-08-03 16:13 | disposition home health service (06) | DRG 199 ==
LOC: ER 10:02 → ED HOLD 16:42 → UNDOADMIN 16:42 → ED HOLD 18:41 → ORTHO 4S 08-02 01:55 → ED HOLD 08-02 01:55
PROVIDERS: ADMIT Internal Medicine; ATTEND Internal Medicine
PROC: B3251ZZ Computerized Tomography (CT Scan) of Bilateral Common Carotid Arteries using Low Osmolar Contrast (ICD-10-PCS; principal; 2025-08-01)
PROC: B32G1ZZ Computerized Tomography (CT Scan) of Bilateral Vertebral Arteries using Low Osmolar Contrast (ICD-10-PCS; 2025-08-01)
PROC: B32R1ZZ Computerized Tomography (CT Scan) of Intracranial Arteries using Low Osmolar Contrast (ICD-10-PCS; 2025-08-01)
PROC: B3281ZZ Computerized Tomography (CT Scan) of Bilateral Internal Carotid Arteries using Low Osmolar Contrast (ICD-10-PCS; 2025-08-01)
DX: I16.1 Hypertensive emergency (principal); I66.02 Occlusion and stenosis of left middle cerebral artery; I67.82 Cerebral ischemia; E87.5 Hyperkalemia; I10 Essential (primary) hypertension; Z88.6 Allergy status to analgesic agent; Z79.01 Long term (current) use of anticoagulants; Z79.82 Long term (current) use of aspirin; Z88.0 Allergy status to penicillin; Z79.899 Other long term (current) drug therapy; Z98.891 History of uterine scar from previous surgery
CPT/HCPCS: 36415; 70450; 70496; 70498; 71045; 80048; 80053; 80061; 82728; 82948; 83036; 83540; 83550; 83735; 84443; 84466; 84484; 85008; 85025; 85610; 85730; 87081; 93005; 93306; 93880; 96365; 96375; 96376; 97161; 97530; 99285; G0378; J0360; J2405; J3360; J3490; J7030; Q9967